=== PATIENT | female | born 2000 | race Caucasian/White ===

== ENCOUNTER 2023-04-10 07:36 | Outpatient (REF) | payer OTHER, SELFPAY | END 2023-04-10 07:37 | disposition home or self-care (01) | LOC: HO.WFDLDS 07:36 | PROVIDERS: Visit Provider Nurse Practitioner Family | DX: Z00.00 Encounter for general adult medical examination without abnormal findings (principal); R82.90 Unspecified abnormal findings in urine | CPT/HCPCS: 36415; 80053; 80061; 81001; 82306; 84443; 85025; 87086 ==

== ENCOUNTER 2023-04-18 08:39 | Outpatient (REF) | payer OTHER, SELFPAY ==
[2023-04-18 11:39] LABS: Appearance Urine Clear; Color Urine Yellow; Glucose Urine UA Negative (Negative); Leukocyte Esterase Urine Negative (Negative); Nitrite Urine Negative (Negative); PH 5.5 (5.0-9.0); Specific Gravity - Urine 1.015 (1.005-1.025); Urine Blood Negative (Negative); Urine Ketones Negative (Negative); Urine Protein Negative (Neg-Trace)
[2023-04-18 13:02] LABS: Syphilis Screen Nonreactive (Nonreactive)
[2023-04-21 05:19] LABS: HBc Num1 0.13 S/CO (0.00-0.79); HBsAGNum1 0.27 S/CO (0.00-0.99); HIV AB/AG Nonreactive (Nonreactive); HIV Num 1 0.06 S/CO (0.00-0.99); Hepatitis B Core Antibody Nonreactive (Nonreactive); Hepatitis B Surface Antigen Negative (Negative); ~HepC Num1 0.11 S/CO (0.00-0.79); ~Hepatitis C Antibody Nonreactive (Nonreactive)
[2023-04-21 05:50] LABS: HBS Num1 12.01 mIU/mL (0-7.99); ~Hepatitis B Surface Antibody REACTIVE (Nonreactive)
== END 2023-04-18 08:40 | disposition home or self-care (01) ==
LOC: HO.WFDLDS 08:39
PROVIDERS: Visit Provider Nurse Practitioner Family
DX: Z00.00 Encounter for general adult medical examination without abnormal findings (principal); Z11.4 Encounter for screening for human immunodeficiency virus [HIV]; Z11.3 Encounter for screening for infections with a predominantly sexual mode of transmission
CPT/HCPCS: 36415; 81003; 86704; 86706; 86780; 86803; 87340; 87389

== ENCOUNTER 2023-05-07 08:57 | Outpatient (AMB) | payer OTHER, SELFPAY ==
[2023-05-07 08:59] VITALS: BP 116/76; PULSE 85; O2SAT 98; BMI 34.5
--- NOTE | 2023-05-07 08:59 | MHC.PC.OV ---
Vital Signs 05/07/23 08:59 Height 5 ft 6 in Weight 214 lb BMI 34.5 BP 116/76 Blood Pressure Location Lt brachial Position Sitting Pulse 85 Pulse Source Pulse Oximeter Pulse Oximetry (%) 98 Intake Visit Reasons: 1 mos labs review, anxiety, depression Intake Note: pt is here for 1 mon f/u labs, anxiety/depression Manager Of Financial Required: No Accompanied by: Self / Same As Patient Allergies No Known Allergies Allergy (Verified 05/07/23 09:24) Medication List - Last Reconciled 05/07/23 by Pop Faria CNP No Known Home Meds Tobacco use date assessed: 04/09/23 Dental Screening Dental Screen Date: 05/07/23 Did you have a dental visit in the last 12 months?: Yes Did you have a dental problem in the last 6 months where you did not have access to dental care?: No Was dental information given to patient?: Patient has dentist HPI HPI Comments History of Present Illness Details 22 y/o female presents for anxiety, depression, and review of recent blood work follow-up. No acute symptoms. 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 1. Little interest or pleasure in doing things: several days 2. Feeling down, depressed, or hopeless: several days 3. Trouble falling or staying asleep, or sleeping too much: several days 4. Feeling tired or having little energy: several days 5. Poor appetite or overeating: not at all 6. Feeling bad about yourself - or that you are a failure or have let yourself or your family down: not at all 7. Trouble concentrating on things, such as reading the newspaper or watching television: not at all 8. Moving or speaking so slowly that other people could have noticed. Or the opposite - being so fidgety or restless that you have been moving around a lot more than usual: not at all 9. Thoughts that you would be better off or of hurting yourself in some way: not at all Total score: 4 Depression Screening Interpretation: Negative 70193 - PHQ-9 Billing: Yes Source: Developed by Drs. Clay Avilez, Jose Carlos Contreras and colleagues, with an educational kimberly from [employer] (Closed). Thrive Questionnaire Date Thrive assessed: 04/09/23 LAURA-7 AMB Questionnaire LAURA-7 Date LAURA - 7 assessed: 05/07/23 Feeling nervous, anxious, or on edge: 0 = Not at all Not being able to stop or control worryin = Not at all Worrying too much about different things: 1 = Several days Trouble relaxin = Not at all Being so restless that it is hard to sit still: 0 = Not at all Becoming easily annoyed or irritable: 1 = Several days Feeling afraid as if something awful might happen: 0 = Not at all Total LAURA-7 score (0-4 normal; 5-9 mild; 10-14 moderate; 15-21 severe): 2 Source: Developed by Drs. Clay Avilez, Jose Carlos Contreras and colleagues, with an educational kimberly from [employer] (Closed). LAURA-7 Assessment Billing LAURA-7 Assessment Tool: LAURA-7 Assessment 56718 Review of Systems Const Details: Const Denies chills, Denies fatigue, Denies fever(s), Denies headache(s) and Denies weakness ENT Denies dizziness and Denies headache(s) Card Denies chest pain, Denies lightheadedness, Denies dyspnea and Denies other (Palpitations) Resp Denies cough, Denies dyspnea, Denies wheezing and Denies other ( shortness of breath) GI Denies abdominal pain, Denies melena, Denies hematochezia, Denies change in bowel habits, Denies dyspepsia and Denies nausea Denies hematuria and Denies dysuria Musc Denies abnormal gait, Denies myalgias, Denies arthralgias, Denies numbness and Denies tingling Skin/Breast Denies rash, Denies unusual bruising and Denies wounds Neuro Denies abnormal gait, Denies dizziness, Denies headache(s), Denies memory loss, Denies numbness, Denies Sensory deficit (Neuro), Denies tingling and Denies weakness Psych Denies anxiety and Denies depression Endo Denies fatigue Aller/Immun Denies wheezing Physical exam (Primary Care) Vital Signs: Last Vital Signs Pulse 85 05/07/23 08:59 BP 116/76 05/07/23 08:59 Pulse Ox 98 05/07/23 08:59 BMI result Body Mass Index 34.5 Tobacco/Smoking Status: Tobacco use Status Tobacco use date assessed 04/09/23 05/07/23 09:07 Patient Tobacco Use Status Never used Tobacco 05/07/23 09:07 e-Cigarette/Vaping Use Currently Using 05/07/23 09:07 PHQ-9: PHQ-9 Score PHQ-9: Total score 4 05/07/23 09:07 Depression Screening Interpretation: Negative Thrive Assessment: Date of Thrive Assessment Date Thrive assessed 04/09/23 05/07/23 09:07 Const Other: General: no acute distress and well developed Nutritional Appearance: well nourished Orientation/consciousness: patient oriented x3 HENMT Head: Yes normocephalic and Yes atraumatic Eyes General: appearance normal, both eyes and all related structures Pupils: Equal, round and reactive pupils present EOM: EOMs intact bilaterally Resp Effort & Inspection: normal respiratory effort Auscultation: clear to auscultation bilaterally Cardio Rate: regular rate Rhythm: regular rhythm Heart sounds: S1 normal heart sound present, S2 normal heart sound present, no gallops, no murmurs and no rubs GI Palpation (GI): No Abdominal aortic bruit present, Soft to palpation, nontender, No hepatosplenomegaly present and No Rebound tenderness present Auscultation: normal bowel sounds General: Yes no CVA tenderness Back/Spine/Pelvis Back: no CVA tenderness Cervical Spine: cervical ROM normal and No Cervical spine tenderness Thoracic/Lumbar Spine: thoraco-lumbar ROM normal, No pain with thoraco-lumbar ROM, No thoracic spinal tenderness and No lumbar spinal tenderness Extrem General: Yes normal to inspection, No edema and No calf tenderness Skin General: warm and dry. Normal skin color. Normal skin turgor Lesions: no lesions Rashes: no rashes Trauma: no lacerations or abrasions Wounds: no wounds Nails: normal Neuro General: patient oriented x3, gait normal and no focal neuro deficit Cranial nerves: Yes Equal, round and reactive pupils present Cognition (Neuro): normal cognition Gait exam (Neuro): Normal gait present Sensory Exam: No Sensory deficit (Neuro) Psych Appearance: grossly normal Affect: normal affect Attitude: cooperative Thought process: Normal thought process present Assessment and Plan Assessment & Plan (1) Anxiety: Code(s): F41.9 - Anxiety disorder, unspecified Plan: No acute symptoms Routine exercise encouraged Follow-up with concerns or symptoms Verbalized understanding and agreed with the plan. (2) Depression: Code(s): F32.A - Depression, unspecified Plan: As above (3) Elevated LDL cholesterol level: Code(s): E78.00 - Pure hypercholesterolemia, unspecified Plan: Recent blood work reviewed with the patient LDL was elevated, 142 Advised to limit foods high in saturated fat and avoid foods high trans fat Routine exercise encouraged Will continue to monitor Coding Level of Care Code Est Pt Level 3 (53782) Diagnoses Anxiety F41.9 Depression F32.A Elevated LDL cholesterol level E78.00 Additional Codes LAURA-7 Assessment Billing - LAURA-7 Assessment Tool: LAURA-7 Assessment 14858 ([id number]) Time Spent (min) 25
== END 2023-05-07 09:27 | disposition home or self-care (01) ==
PROVIDERS: PCP Nurse Practitioner Family; Visit Provider Nurse Practitioner Family
DX: F41.9 Anxiety disorder, unspecified (principal); F32.A Depression, unspecified; E78.00 Pure hypercholesterolemia, unspecified
CPT/HCPCS: 99213

== ENCOUNTER 2023-05-07 09:53 | Outpatient (REF) | payer OTHER, SELFPAY ==
[2023-05-08 12:50] LABS: CT PCR NOT DETECTED (Not Detect.); NG PCR NOT DETECTED (Not Detect.)
== END 2023-05-07 09:54 | disposition home or self-care (01) ==
LOC: HO.WFDLDS 09:53
PROVIDERS: Visit Provider Nurse Practitioner Family
DX: Z20.2 Contact with and (suspected) exposure to infections with a predominantly sexual mode of transmission (principal)
CPT/HCPCS: 0353U

== ENCOUNTER 2024-08-23 07:57 | Outpatient (AMB) | payer OTHER, SELFPAY ==
--- NOTE | 2024-08-23 07:59 | A.OFFPC_ITS ---
Vital Signs 08/23/24 08:05 Height 5 ft 7 in Weight 221 lb 4 oz BMI 34.6 BP 112/70 Blood Pressure Location Rt brachial Position Sitting Respiration 16 Pulse 91 Pulse Source Pulse Oximeter Temp 97.9 F Temp Source Oral Pulse Oximetry (%) 97 Oxygen Delivery Method Room Air Intake Visit Reasons: annual Intake Note: patient here for CPE [employer] Required: No Is last menstrual period known: Yes Last menstrual period: 08/23/24 Post menopausal: No Patient : No Allergies No Known Allergies Allergy (Verified 08/23/24 08:11) Medication List - Last Reconciled 08/23/24 by Pop Faria CNP No Known Home Meds Tobacco use date assessed: 08/23/24 Dental Screening Dental Screen Date: 08/23/24 Did you have a dental visit in the last 12 months?: Yes Did you have a dental problem in the last 6 months where you did not have access to dental care?: No Was dental information given to patient?: Patient has dentist HPI HPI Comments History of Present Illness Details 24-year-old female presents for an exten ded physical exam. She reports PMH significant for anxiety and depression. She is not on prescription medications. She reports increased anxiety and depressive symptoms which she attributes to w ork stressors, family issues, and poor night sleep. She has trouble falling asleep. She has positive SI. She notes that Sometimes i feel like people would be better off if i was gone. She notes that her brothers and sisters in the [facility] has note spoken to her for 11 years. She notes that they probably would not noticed if she is not alive. She denies SI/HI and no plan of committing suicide. She denies history of psychotropic medication but notes that she had trials of psychotherapy at childhood. She did not find psychotherapy helpful. She generally makes healthy dietary choices. She exercises at times. She has trouble falling asleep. She is able to fall and stay asleep after taking zzzquil. 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 Drinks 1 beer weekly. No recreational drugs. Last eye exam was 05/04/2024 at [facility], in [place]. She will sign a release for her PCP to obtain her records Last pap smear test was over 3 years ago She does not recall getting a tetanus vaccine. She will review her record and inform her PCP She has not been vaccinated for the flu this season; requests vaccinated. She is sexually active, in a monogamous relationship, and has concerns for STDs. 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 1. Little interest or pleasure in doing things: nearly every day 2. Feeling down, depressed, or hopeless: nearly every day 3. Trouble falling or staying asleep, or sleeping too much: nearly every day 4. Feeling tired or having little energy: nearly every day 5. Poor appetite or overeating: nearly every day 6. Feeling bad about yourself - or that you are a failure or have let yourself or your family down: nearly every day 7. Trouble concentrating on things, such as reading the newspaper or watching television: nearly every day 8. Moving or speaking so slowly that other people could have noticed. Or the opposite - being so fidgety or restless that you have been moving around a lot more than usual: not at all 9. Thoughts that you would be better off or of hurting yourself in some way: more than half the days Total score: 23 Depression Screening Interpretation: Positive Depression Screening Follow-up: Existing condition and New Medication prescribed Depression Screening Done: Yes Source: Developed by Drs. Clay Avilez, Edilma Dunbar, Jose Carlos Diop and colleagues, with an educational kimberly from [employer]. Thrive Questionnaire Date Thrive assessed: 08/23/24 I am a: Patient What is your living situation today?: I have a steady place to live Within the past 12 months, did the food you bought not last and you didn't have the money to get more?: Sometimes True Within the past 12 months, did you worry whether your food would run out before you got money to buy more?: Sometimes True Do you have trouble paying for medicines?: No Do you have trouble getting transportation to medical appointments?: No Do you have trouble paying your heating and electricity bill?: No Do you have trouble taking care of your child, family member or friend?: No Do you have trouble with day-to-day activities such as bathing, preparing meals, shopping, managing finances, etc.?: No Are you currently unemployed and looking for a job?: No Are you interested in more education?: Yes Please select the resources that you would like help with: Education Currently or been in a relationship where the following occur: No concerns reported THRIVE Score: 2 AUDIT C Alcohol Use Questionnaire (AUDIT-C) 1. How often do you have a drink containing alcohol?: Monthly or less 2. How many drinks containing alcohol do you have on a typical day when you are drinking?: 1 or 2 3. How often do you have six or more drinks on one occasion?: Never Total Score: 1 Score Reviewed/Action Taken: Yes LAURA-7 AMB Questionnaire LAURA-7 Date LAURA - 7 assessed: 08/23/24 Feeling nervous, anxious, or on edge: 1 = Several days Not being able to stop or control worryin = Several days Worrying too much about different things: 3 = Nearly every day Trouble relaxin = Nearly every day Being so restless that it is hard to sit still: 3 = Nearly every day Becoming easily annoyed or irritable: 3 = Nearly every day Feeling afraid as if something awful might happen: 1 = Several days Total LAURA-7 score (0-4 normal; 5-9 mild; 10-14 moderate; 15-21 severe): 15 Source: Developed by Drs. Clay Avilez, Edilma Dunbar, Jose Carlos Diop and colleagues, with an educational kimberly from [employer] LAURA-7 Assessment Billing LAURA-7 Assessment Tool: LAURA-7 Assessment 63692 Review of Systems Const Details: Denies chills, Denies fatigue, Denies fever(s), Denies headache(s) and Denies weakness HEENT Denies change in vision, Denies dizziness, Denies headache(s), Denies hearing loss, Denies nasal congestion, Denies sinus pain, Denies sinus pressure and Denies sore throat Card Denies chest pain, Denies lightheadedness, Denies dyspnea and Denies other (palpitations) Resp Denies cough, Denies dyspnea and Denies wheezing GI Denies abdominal pain, Denies melena, Denies hematochezia, Denies change in bowel habits, Denies dyspepsia and Denies nausea Denies hematuria and Denies dysuria Musc Denies abnormal gait, Denies myalgias, Denies arthralgias, Denies numbness and Denies tingling Skin/Breast Denies rash, Denies unusual bruising and Denies wounds Neuro Denies abnormal gait, Denies dizziness, Denies headache(s), Denies memory loss, Denies numbness, Denies Sensory deficit (Neuro), Denies tingling and Denies weakness Psych Reports anxiety, Reports depression and Denies memory loss Endo Denies cold intolerance, Denies fatigue, Denies heat intolerance, Denies polyd ipsia and Denies polyuria Vivek/Lymph Denies easy bleeding and Denies easy bruising Aller/Immun Denies wheezing Physical exam (Primary Care) Vital Signs: Last Vital Signs Temp 97.9 F 08/23/24 08:05 Pulse 91 08/23/24 08:05 Resp 16 08/23/24 08:05 BP 112/70 08/23/24 08:05 Pulse Ox 97 08/23/24 08:05 Oxygen Delivery Method Room Air 08/23/24 08:05 BMI result Body Mass Index 34.6 Tobacco/Smoking Status: Tobacco use Status Tobacco use date assessed 08/23/24 08/23/24 08:05 Patient Tobacco Use Status Never used Tobacco 08/23/24 08:02 e-Cigarette/Vaping Use Former Use 08/23/24 08:49 PHQ-9: PHQ-9 Score PHQ-9: Total score 23 08/23/24 08:57 Depression Screening Interpretation: Positive Depression Screening Follow-up: Existing condition and New Medication prescribed Thrive Assessment: Date of Thrive Assessment Date Thrive assessed 08/23/24 08/23/24 08:02 Currently or been in a relationship where the following occur: No concerns reported Const Other: General: no acute distress, well developed, alert and awake Nutritional Appearance: well nourished Orientation/consciousness: patient oriented x3 [facility] Head: Yes normocephalic and Yes atraumatic Ears: hearing grossly normal bilaterally and TM's normal bilaterally General nose exam: Normal external nose present and Normal nares present Mouth: Normal oral and palatal mucosa present and moist mucous membranes Teeth and gingiva: dentition normal Throat: Yes oropharynx normal Eyes Pupils: Equal, round and reactive pupils present and Pupil accommodation reflex normal EOM: EOMs intact bilaterally Neck Neck: Yes normal visual inspection, Yes no lymphadenopathy and Yes trachea midline Thyroid: Thyroid normal Carotids: no bruits Lymphatic: no lymphadenopathy noted Chest Chest palpation & inspection: normal inspection of the chest Resp Effort & Inspection: normal respiratory effort Auscultation: clear to auscultation bilaterally Cardio Rate: regular rate Rhythm: regular rhythm Heart sounds: S1 normal heart sound present, S2 normal heart sound present, no gallops, no murmurs and no rubs Bruits: no abdominal aortic bruits and no carotid bruits GI Palpation (GI): No Abdominal aortic bruit present, Soft to palpation, nontender, No hepatosplenomegaly present and No Rebound tenderness present Auscultation: normal bowel sounds General: Yes no CVA tenderness Back/Spine/Pelvis Back: no CVA tenderness Cervical Spine: cervical ROM normal and No Cervical spine tenderness Thoracic/Lumbar Spine: thoraco-lumbar ROM normal, No pain with thoraco-lumbar ROM, No thoracic spinal tenderness and No lumbar spinal tenderness Skin General: warm and dry. Normal skin color. Normal skin turgor Lesions: no lesions Rashes: no rashes Trauma: no lacerations or abrasions Wounds: no wounds Nails: normal Neuro General: patient oriented x3, gait normal and CN's II-XI intact bilaterally Cranial nerves: Yes Equal, round and reactive pupils present Cognition (Neuro): normal cognition Gait exam (Neuro): Normal gait present Motor exam (neuro): 5/5 motor strength present throughout Sensory Exam: No Sensory deficit (Neuro) Deep tendon reflexes (DTR's): Right patellar reflex intensity grade: 2+ and Left patellar reflex intensity grade: 2+ Extrem General: Yes normal to inspection, No edema and No calf tenderness Psych Appearance: grossly normal Affect: normal affect Attitude: cooperative Thought process: Normal thought process present Office Procedures Flu Questionnaire Does the patient have a severe egg allergy?: No Does the patient have severe life threatening allergies?: No Does the patient have a fever or illness today?: No Has the patient ever had Guillain-[place] Syndrome?: No Has the patient ever had any past reaction to a flu shot?: No Immunizations Fluarix Triv 6840-8636 (PF) 45 mcg (15 mcg x 3)/0.5 mL IM syringe Performing Provider: Pop Faria CNP Performing Location: [facility] Family Medicine Administered by: Abigail Francisco RN on 08/23/24 08:51 Dose Route Admin Location Dispensed Lot Number Expiration Date [facility] Front Desk Receptionist 0.5 mL IM Right Deltoid 0.5 mL [id number] 04/04/25 [id number] [employer] VIS Given Date VIS Provided VIS Publication Date 08/23/24 Single Vaccine 21 Eligibility Eligibility Date Funding Source Not [facility] Eligible 08/23/24 Private Coding Level of Care Code Est Pt Level 4 (48594) Est Pt Prev Care 18-39y(04870) Diagnoses Normal physical examination, routine Z00.00 Anxiety F41.9 Depression F32.A Sleep disturbance G47.9 Screen for STD (sexually transmitted disease) Z11.3 Flu vaccine need Z23 Obesity (BMI 30-39.9) E66.9 Pap smear for cervical cancer screening Z12.4 Laboratory tests ordered as part of a complete physical exam (CPE) Z00.00 Additional Codes LAUAR-7 Assessment Billing - LAURA-7 Assessment Tool: LAURA-7 Assessment 94702 ([id number]) Assessment & Plan Assessment & Plan (1) Normal physical examination, routine: Code(s): Z00.00 - Encounter for general adult medical examination without abnormal findings Category: Medical Plan: No significant functional limitation noted Healthy diet and routine exercise encouraged Advised to get lab work done before her next visit Follow-up in 2 weeks for anxiety, depression, and labs review or sooner with worsening or new symptoms Verbalized understanding and agreed with the treatment plan (2) Anxiety: Code(s): F41.9 - Anxiety disorder, unspecified Category: Medical Plan: Reports increased anxiety and depressive symptoms which she attributes to poor sleep, and work and family stressors. She has passive SI. No active SI. No HI. No plan of committing suicide PHQ-9 and LAURA-7 scores revealed severe depression and anxiety She declines psychotherapy but is willing to start pharmacotherapy. Will start sertraline 25 mg daily. Advised to take as prescribed. Instructed on the risks, benefits, and potential adverse reactions of the medication Routine exercise encouraged Follow-up in 2 weeks or sooner with worsening or new symptoms Verbalized understanding and agreed with the treatment plan (3) Depression: Code(s): F32.A - Depression, unspecified Category: Medical Plan: Plan as above (4) Sleep disturbance: Code(s): G47.9 - Sleep disorder, unspecified Category: Medical Plan: Plan as above (5) Screen for STD (sexually transmitted disease): Code(s): Z11.3 - Encounter for screening for infections with a predominantly sexual mode of transmission Category: Medical Plan: She is sexually active, in a monogamous relationship, and has concerns for STDs STD labs ordered (6) Flu vaccine need: Code(s): Z23 - Encounter for immunization Category: Medical Plan: He has not been vaccinated for the flu this season Flu vaccine administer today by our nurse (7) Obesity (BMI 30-39.9): Code(s): E66.9 - Obesity, unspecified Category: Medical Plan: She currently weighs 221 lb, BMI is 34.6 Healthy diet and routine exercise encouraged Referred to [facility] weight management as requested (8) Pap smear for cervical cancer screening: Code(s): Z12.4 - Encounter for screening for malignant neoplasm of cervix Category: Medical Plan: Her last Pap smear test was over 3 years ago 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 Advised to fast for at least 10 hours before getting labs drawn. May drink water Verbalized understanding and agreed with treatment plan. Orders: Orders TSH reflex Free T4 Today Z00.00 - Encounter for general adult medical examination without abnormal findings UA CC w/rflx Micro + Cult Today Z00.00 - Encounter for general adult medical examination without abnormal findings CT NG by PCR Today Z11.3 - Encounter for screening for infections with a predominantly sexual mode of transmission HIV Ab/Ag Today Z11.3 - Encounter for screening for infections with a predominantly sexual mode of transmission Syphilis Screen Today Z11.3 - Encounter for screening for infections with a predominantly sexual mode of transmission Complete Blood Count Auto Diff Today Z00.00 - Encounter for general adult medical examination without abnormal findings Comprehensive Stryker. Panel Fast Today Z00.00 - Encounter for general adult medical examination without abnormal findings Lipid Panel Today Z00.00 - Encounter for general adult medical examination without abnormal findings Vitamin D 25-OH Total Today Z00.00 - Encounter for general adult medical examination without abnormal findings Influenza [id number] Immunization Today Z23 - Encounter for immunization Hepatitis B,C Profile Today Z11.3 - Encounter for screening for infections with a predominantly sexual mode of transmission Referrals Medical Weight Management Referral E66.9 - Obesity, unspecified MANAGER INTERVENTIONAL Referral Z12.4 - Encounter for screening for malignant neoplasm of cervix Medications: New sertraline 25 mg PO DAILY 30 tabs 3RF 30 days
[2024-08-23 08:05] VITALS: BP 112/70; PULSE 91; RESP 16; TEMP 36.6; O2SAT 97; BMI 34.6
== END 2024-08-23 08:51 | disposition home or self-care (01) ==
PROVIDERS: PCP Nurse Practitioner Family; Visit Provider Nurse Practitioner Family
DX: Z00.00 Encounter for general adult medical examination without abnormal findings (principal); F41.9 Anxiety disorder, unspecified; F32.A Depression, unspecified; G47.9 Sleep disorder, unspecified; Z11.3 Encounter for screening for infections with a predominantly sexual mode of transmission; E66.9 Obesity, unspecified

== ENCOUNTER → 2024-08-23 07:57 | Outpatient (BNVA) | payer OTHER, SELFPAY | PROVIDERS: PCP Nurse Practitioner Family; Visit Provider Nurse Practitioner Family | DX: Z00.00 Encounter for general adult medical examination without abnormal findings (principal); Z23 Encounter for immunization; F41.9 Anxiety disorder, unspecified; F32.A Depression, unspecified; G47.9 Sleep disorder, unspecified; E66.9 Obesity, unspecified; Z68.34 Body mass index [BMI] 34.0-34.9, adult | CPT/HCPCS: 90471; 90656; 96127 ==

== ENCOUNTER 2024-08-23 09:29 | Outpatient (REF) | payer OTHER, SELFPAY ==
[2024-08-23 11:32] LABS: MANUAL DIFF FLAG NO
[2024-08-23 11:46] LABS: Appearance Urine Clear; Color Urine Yellow; Glucose Urine UA Negative (Negative); Leukocyte Esterase Urine Negative (Negative); Nitrite Urine Negative (Negative); PH 5.5 (5.0-9.0); UMIC TRIGGER UACC YES; Urine Blood Small (1+) (Negative); Urine Ketones Negative (Negative); Urine Protein Negative (Neg-Trace)
[2024-08-23 11:55] LABS: Bacteria Urine None Seen (None Seen); Hyaline Casts Urine 0-2 /LPF (0-2); Squamous Epithelial Cell Urine 0-2 /HPF (0-2); WBC Urine 0-5 /HPF (0-5)
[2024-08-23 12:04] LABS: Basophils Absolute Auto 0.1 X10*3/uL (0.0-0.2); Basophils Percent Auto 0.8 % (0-2); Eosinophils Absolute Auto 0.1 X10*3/uL (0.0-0.4); Hematocrit 42.9 % (37.0-47.0); Hemoglobin 14.2 g/dl (12.0-16.0); Imm Gran Abs Auto 0.01 X10*3/uL (0.00-0.03); Imm Gran Pct Auto 0.2 % (0.0-0.4); Lymphocytes Absolute Auto 2.1 X10*3/uL (1.2-4.9); Lymphocytes Percent Auto 31.6 % (20-40); Mean Corpuscular HGB Conc 33.1 g/dl (31.0-35.0); Mean Corpuscular Hemoglobin 28.5 pg (27.0-33.0); Mean Platelet Volume 10.3 fL (9.4-12.3); Monocytes Absolute Auto 0.5 X10*3/uL (0.1-1.2); Monocytes Percent Auto 7.6 % (2-11); Neutrophils Absolute Auto 3.8 x10*3/uL (2.0-8.3); Neutrophils Percent Auto 57.8 % (45-73); Platelet Count 323 X10*3/uL (160-400); Red Blood Count 4.99 X10*6/uL (4.20-5.50); Red Cell Distribution Width 12.9 % (11.0-16.0); White Blood Count 6.5 X10*3/uL (4.8-10.8)
[2024-08-23 12:15] LABS: Alanine Aminotransferase 17 U/L (0-31); Albumin Level 4.1 g/dL (3.5-5.0); Alkaline Phosphatase 72 U/L (39-117); Anion Gap 9 (12-20); Aspartate Amino Transferase 21 U/L (5-31); Bilirubin Total 0.4 mg/dL (0.0-1.0); Blood Urea Nitrogen 7 mg/dL (9-16); Calcium 9.4 mg/dL (8.4-10.2); Carbon Dioxide 25 mmol/L (22-29); Chloride 108 mmol/L (96-108); Cholesterol 177 mg/dL (<200); Estimated Glomerular Filt Rate > 60; Glucose Fasting 95 mg/dL (60-99); HDL Cholesterol 40 mg/dL (>40); LDL Cholesterol Calculated 122 mg/dL (<100); Potassium 3.7 mmol/L (3.3-5.1); Sodium 138 mmol/L (135-145); Total Protein 7.7 g/dL (6.5-8.0); Triglycerides 78 mg/dL (<150)
[2024-08-23 12:26] LABS: Syphilis Screen Nonreactive (Nonreactive)
[2024-08-23 12:30] LABS: HBS Num1 11.87 mIU/mL (0-7.99); HBc Num1 0.27 S/CO (0.00-0.79); HBsAGNum1 0.42 S/CO (0.00-0.99); HIV AB/AG Nonreactive (Nonreactive); HIV Num 1 0.05 S/CO (0.00-0.99); Hepatitis B Core Antibody Nonreactive (Nonreactive); Hepatitis B Surface Antigen Negative (Negative); ~HepC Num1 0.19 S/CO (0.00-0.79); ~Hepatitis C Antibody Nonreactive (Nonreactive)
[2024-08-23 12:38] LABS: TSH reflex Free T4 0.62 uIU/mL (0.32-4.0); Vitamin D 25-OH Total 26.1 ng/mL (>30)
[2024-08-23 13:34] LABS: CT PCR NOT DETECTED (Not Detect.); NG PCR NOT DETECTED (Not Detect.)
[2024-08-23 14:05] LABS: HBS Num2 10.38 mIU/mL (0-7.99); ~Hepatitis B Surface Antibody GRAYZONE (Nonreactive)
== END 2024-08-23 09:30 | disposition home or self-care (01) ==
LOC: HO.WFDLDS 09:29
PROVIDERS: Visit Provider Nurse Practitioner Family
DX: Z00.00 Encounter for general adult medical examination without abnormal findings (principal); Z11.3 Encounter for screening for infections with a predominantly sexual mode of transmission
CPT/HCPCS: 36415; 80053; 80061; 81001; 82306; 84443; 85025; 86704; 86706; 86780; 86803; 87340; 87389; 87491; 87591

== ENCOUNTER 2024-09-06 10:58 | Outpatient (AMB) | payer OTHER, SELFPAY ==
--- NOTE | 2024-09-06 11:04 | A.OFFPC_ITS ---
Vital Signs 09/06/24 11:10 Height 5 ft 7 in Weight 218 lb 6 oz BMI 34.2 BP 119/66 Blood Pressure Location Lt brachial Position Sitting Respiration 16 Pulse 81 Pulse Source Pulse Oximeter Temp 97.2 F Temp Source Temporal Artery Scan Pulse Oximetry (%) 98 Oxygen Delivery Method Room Air Intake Visit Reasons: Anx and Depression Intake Note: patient here for follow up on anxiety and depression Bicycle Inspector Required: No Is last menstrual period known: Yes Last menstrual period: 08/23/24 Post menopausal: No Patient : No Allergies No Known Allergies Allergy (Verified 09/06/24 11:25) Medication List - Last Reconciled 09/06/24 by Pop Faria CNP sertraline 25 mg PO DAILY 30 days Tobacco use date assessed: 09/06/24 Dental Screening Dental Screen Date: 09/06/24 Did you have a dental visit in the last 12 months?: Yes Did you have a dental problem in the last 6 months where you did not have access to dental care?: No Was dental information given to patient?: Patient has dentist HPI HPI Comments History of Present Illness Details The patient is a 24-year-old female presenting with follow-up for anxiety and depression. She has been experiencing symptoms of anxiety and depression that were treated with sertraline, recently initiated at a dose of 25 mg daily. The patient reports no significant improvement in her symptoms, stating that she remains depressed. Others have observed her appearing more depressed, particularly at work, where she notes feeling distracted. Recent depression screening reveals a PHQ-9 score of 16, indicating moderately severe depression, and an anxiety screening showing mild anxiety. The patient expresses ongoing issues with sleep, only achieving approximately four hours of sleep per night, contributing to persistent fatigue. There have been no significant stevenson ges in her level of nervousness since starting the medication. Additionally, the patient reports an absence of motivation and energy, particularly around exercise. She requests tetanus injection and recent STD labs results. [facility] Medical History Anxiety Depression High cholesterol No pertinent family history Surgical History No pertinent past surgical history Social History Housing: Apartment Patient Tobacco Use Status: Never used Tobacco e-Cigarette/Vaping Use: Former Use Second Hand Smoke Exposure: No service: No Current occupational status: employed Current occupation: [employer] Cognitive needs: No Hearing needs: No Vision needs: Yes Female Reproductive History Menstrual Date of last menstrual period: 08/23/24 Questionnaire PHQ-9 Over the last 2 weeks, how often have you been bothered by any of the following problems? 1. Little interest or pleasure in doing things: nearly every day 2. Feeling down, depressed, or hopeless: nearly every day 3. Trouble falling or staying asleep, or sleeping too much: nearly every day 4. Feeling tired or having little energy: nearly every day 5. Poor appetite or overeating: more than half the days 6. Feeling bad about yourself - or that you are a failure or have let yourself or your family down: more than half the days 7. Trouble concentrating on things, such as reading the newspaper or watching te levision: not at all 8. Moving or speaking so slowly that other people could have noticed. Or the opposite - being so fidgety or restless that you have been moving around a lot more than usual: not at all 9. Thoughts that you would be better off or of hurting yourself in some way: not at all Total score: 16 Depression Screening Interpretation: Positive Depression Screening Follow-up: Existing condition and In treatment Depression Screening Done: Yes 66011 - PHQ-9 Billing: Yes Source: Developed by Drs. Clay Avilez, Edilma Dunbar, Jose Carlos Diop and colleagues, with an educational kimberly from [employer]. Thrive Questionnaire Date Thrive assessed: 09/06/24 I am a: Patient What is your living situation today?: I have a steady place to live Within the past 12 months, did the food you bought not last and you didn't have the money to get more?: Sometimes True Within the past 12 months, did you worry whether your food would run out before you got money to buy more?: Sometimes True Do you have trouble paying for medicines?: No Do you have trouble getting transportation to medical appointments?: No Do you have trouble paying your heating and electricity bill?: No Do you have trouble taking care of your child, family member or friend?: No Do you have trouble with day-to-day activities such as bathing, preparing meals, shopping, managing finances, etc.?: No Are you currently unemployed and looking for a job?: No Are you interested in more education?: Yes Currently or been in a relationship where the following occur: No concerns reported THRIVE Score: 2 AUDIT C Alcohol Use Questionnaire (AUDIT-C) 1. How often do you have a drink containing alcohol?: 2-4 times a month 2. How many drinks containing alcohol do you have on a typical day when you are drinking?: 1 or 2 3. How often do you have six or more drinks on one occasion?: Never Total Score: 2 Score Reviewed/Action Taken: Yes LAURA-7 AMB Questionnaire LAURA-7 Date LAURA - 7 assessed: 09/06/24 Feeling nervous, anxious, or on edge: 0 = Not at all Not being able to stop or control worryin = Not at all Worrying too much about different things: 0 = Not at all Trouble relaxin = Nearly every day Being so restless that it is hard to sit still: 1 = Several days Becoming easily annoyed or irritable: 2 = More than half the days Feeling afraid as if something awful might happen: 0 = Not at all Total LAURA-7 score (0-4 normal; 5-9 mild; 10-14 moderate; 15-21 severe): 6 Source: Developed by Drs. Clay Avilez, Edilma Dunbar, Jose Carlos Diop and colleagues, with an educational kimberly from [employer]. LAURA-7 Assessment Billing LAURA-7 Assessment Tool: LAURA-7 Assessment 70725 Review of Systems Const Details: Const Denies chills, Denies fatigue, Denies fever(s), Denies headache(s) and Denies weakness ENT Denies dizziness and Denies headache(s) Card Denies chest pain, Denies lightheadedness, Denies dyspnea and Denies other (Palpitations) Resp Denies cough, Denies dyspnea, Denies wheezing and Denies other ( shortness of breath) GI Denies abdominal pain, Denies melena, Denies hematochezia, Denies change in bowel habits, Denies dyspepsia and Denies nausea Denies hematuria and Denies dysuria Musc Denies abnormal gait, Denies myalgias, Denies arthralgias, Denies numbness and Denies tingling Skin/Breast Denies rash, Denies unusual bruising and Denies wounds Neuro Denies abnormal gait, Denies dizziness, Denies headache(s), Denies memory loss, Denies numbness, Denies Sensory deficit (Neuro), Denies tingling and Denies weakness Psych Denies anxiety, Reports depression, Denies memory loss Endo Denies cold intolerance, Denies fatigue, Denies heat intolerance, Denies polydipsia and Denies polyuria Aller/Immun Denies wheezing Physical exam (Primary Care) Vital Signs: Last Vital Signs Temp 97.2 F 09/06/24 11:10 Pulse 81 09/06/24 11:10 Resp 16 09/06/24 11:10 BP 119/66 09/06/24 11:10 Pulse Ox 98 09/06/24 11:10 Oxygen Delivery Method Room Air 09/06/24 11:10 BMI result Body Mass Index 34.2 Tobacco/Smoking Status: Tobacco use Status Tobacco use date assessed 09/06/24 09/06/24 11:12 Patient Tobacco Use Status Never used Tobacco 09/06/24 11:06 e-Cigarette/Vaping Use Former Use 09/06/24 11:06 PHQ-9: PHQ-9 Score PHQ-9: Total score 16 09/06/24 11:43 Depression Screening Interpretation: Positive Depression Screening Follow-up: Existing condition and In treatment Thrive Assessment: Date of Thrive Assessment Date Thrive assessed 09/06/24 09/06/24 11:06 Currently or been in a relationship where the following occur: No concerns reported Const Other: General: no acute distress and well developed Nutritional Appearance: well nourished Orientation/consciousness: patient oriented x3 HENMT Head: Yes normocephalic and Yes atraumatic Eyes General: appearance normal, both eyes and all related structures Pupils: Equal, round and reactive pupils present EOM: EOMs intact bilaterally Resp Effort & Inspection: normal respiratory effort Auscultation: clear to auscultation bilaterally Cardio Rate: regular rate Rhythm: regular rhythm Heart sounds: S1 normal heart sound present, S2 normal heart sound present, no gallops, no murmurs and no rubs GI Palpation (GI): No Abdominal aortic bruit present, Soft to palpation, nontender, No hepatosplenomegaly present and No Rebound tenderness present Auscultation: normal bowel sounds General: Yes no CVA tenderness Back/Spine/Pelvis Back: no CVA tenderness Cervical Spine: cervical ROM normal and No Cervical spine tenderness Thoracic/Lumbar Spine: thoraco-lumbar ROM normal, No pain with thoraco-lumbar ROM, No thoracic spinal tenderness and No lumbar spinal tenderness Extrem General: Yes normal to inspection, No edema and No calf tenderness Skin General: warm and dry. Normal skin color. Normal skin turgor Lesions: no lesions Rashes: no rashes Trauma: no lacerations or abrasions Wounds: no wounds Nails: normal Neuro General: patient oriented x3, gait normal and no focal neuro deficit Cranial nerves: Yes Equal, round and reactive pupils present Cognition (Neuro): normal cognition Gait exam (Neuro): Normal gait present Sensory Exam: No Sensory deficit (Neuro) Psych Appearance: grossly normal Affect: normal affect Attitude: cooperative Thought process: Normal thought process present Immunizations Boostrix Tdap 2.5 Lf unit-8 mcg-5 Lf/0.5 mL intramuscular syringe Performing Provider: Pop Faria CNP [facility] [facility] [facility] Administered by: Alma Peña RN on 09/06/24 11:43 Dose Route Admin Location Dispensed Lot Number Expiration Date [facility] Carton Forming Machine Adjuster 0.5 mL IM Right Deltoid 0.5 mL [id number] 10/27/26 [id number] [place] VIS Given Date VIS Provided VIS Publication Date 09/06/24 Single Vaccine 21 Eligibility Eligibility Date Funding Source Not [facility] Eligible 09/06/24 Private Coding Level of Care Code Est Pt Level 4 (89040) Diagnoses Anxiety F41.9 Depression F32.A Sleep disturbance G47.9 Vaccine for tetanus toxoid Z23 Additional Codes LAURA-7 Assessment Billing - LAURA-7 Assessment Tool: LAURA-7 Assessment 06694 ([id number]) PHQ-9 - 23527 - PHQ-9 Billing: Yes ([id number]) Assessment & Plan Assessment & Plan (1) Anxiety: Code(s): F41.9 - Anxiety disorder, unspecified Category: Medical Plan: Sertraline dose to be increased from 25 mg to 50 mg daily to address inadequate symptom management. Monitor symptoms following sertraline dosage adjustment. Follow-up scheduled in two weeks to assess response to dosage change. (2) Depression: Code(s): F32.A - Depression, unspecified Category: Medical Plan: Plan as above. (3) Sleep disturbance: Code(s): G47.9 - Sleep disorder, unspecified Category: Medical Plan: Encouragement to improve sleep hygiene; increase in sertraline dosage may also contribute to improved sleep. (4) Vaccine for tetanus toxoid: Code(s): Z23 - Encounter for immunization Category: Medical Plan: Tdap vaccine administered at the of this visit. Plan During the visit, we discussed the patient's current status of depression and anxiety. The PHQ-9 score continues to reflect moderately severe depression, while anxiety remains mild. We agreed to increase the sertraline dose to 50 mg daily and monitor its effects on both depression and anxiety symptoms. The importance of patience with medication adjustments was emphasized, as was the encouragement to engage in physical activity as energy permits. We discussed the continuation of regular follow-ups to monitor progress and the patient's under standing of factors impacting sleep. Consent was provided for a tetanus injection. Orders: Orders TDaP Immunization Today Z23 - Encounter for immunization Medications: New sertraline 50 mg PO DAILY 30 tabs 3RF 30 days Discontinued sertraline Discontinued Reason: Doctor's Order 25 mg PO DAILY 30 days 30 tabs 3RF Patient Instructions: - Increase sertraline to 50 mg daily. - Monitor mood and energy levels post-dosage adjustment. - Engage in physical activity when energy permits. - Return for a follow-up appointment in two weeks. - Obtain tetanus injection as planned today. - Contact the office if there are any urgent concerns or worsening symptoms. - Address any concerns about test results with front office staff. Patient was informed and verbally consented to the use of an ambient scribe for clinic note documentation during this visit.
[2024-09-06 11:10] VITALS: BP 119/66; PULSE 81; RESP 16; TEMP 36.2; O2SAT 98; BMI 34.2
== END 2024-09-06 11:51 | disposition home or self-care (01) ==
PROVIDERS: PCP Nurse Practitioner Family; Visit Provider Nurse Practitioner Family
DX: F41.9 Anxiety disorder, unspecified (principal); F32.A Depression, unspecified; G47.9 Sleep disorder, unspecified; Z23 Encounter for immunization

== ENCOUNTER → 2024-09-06 10:58 | Outpatient (BNVA) | payer OTHER, SELFPAY | PROVIDERS: PCP Nurse Practitioner Family; Visit Provider Nurse Practitioner Family | DX: F41.9 Anxiety disorder, unspecified (principal); F32.A Depression, unspecified; G47.9 Sleep disorder, unspecified; Z23 Encounter for immunization; Z79.899 Other long term (current) drug therapy | CPT/HCPCS: 90471; 90715; 96127 ==

== ENCOUNTER 2024-09-20 12:51 | Outpatient (AMB) | payer OTHER, SELFPAY ==
--- NOTE | 2024-09-20 12:55 | MHC.PC.OV ---
Vital Signs 09/20/24 13:29 Height 5 ft 7 in Weight 222 lb BMI 34.8 BP 121/72 Blood Pressure Location Rt brachial Position Sitting Respiration 16 Pulse 93 Pulse Source Pulse Oximeter Temp 97.2 F Temp Source Temporal Artery Scan Pulse Oximetry (%) 97 Oxygen Delivery Method Room Air Intake Visit Reasons: 2 wks anxiety, depression Intake Note: patient here for follow up on anxiety and depression Balance Wheel Facer Required: No Is last menstrual period known: Yes Last menstrual period: 08/23/24 Post menopausal: No Patient : Yes Allergies No Known Allergies Allergy (Verified 09/20/24 13:37) Tobacco use date assessed: 09/20/24 Dental Screening Dental Screen Date: 09/20/24 Did you have a dental visit in the last 12 months?: No Did you have a dental problem in the last 6 months where you did not have access to dental care?: No Was dental information given to patient?: Patient has dentist HPI HPI Comments History of Present Illness Details 24-year-old female presents for anxiety, depression, and review of recent lab results follow-up. She is taking sertraline which was increased from 25 mg to 50 mg at her last visit about 2 weeks ago. She stopped taking the medication due to lightheadedness, stomach ache, and nausea for a week after the dose increased. She stopped taking the medication 3 days ago and her symptoms completely resolved. She did not experience adverse reaction on the lower dose. She notes that she is exhausted, tired, and has no energy to do anything. She sleeps throughout the day. Her parents and friends think her anxiety and depressive symptoms are worse. He has been isolating from friends and family and communicating with them less. She denies SI/HI. She has not been motivated to exercise. She was told by [facility] that only surgery is offered and she has not eligible. She declines dietitian/pharmacy retail support specialist referral. [facility] Medical History Anxiety Depression High cholesterol No pertinent family history Surgical History No pertinent past surgical history Social History Housing: Apartment Patient Tobacco Use Status: Never used Tobacco e-Cigarette/Vaping Use: Former Use Second Hand Smoke Exposure: No service: No Current occupational status: employed Current occupation: [employer] Cognitive needs: No Hearing needs: No Vision needs: Yes Female Reproductive History Menstrual Date of last menstrual period: 08/23/24 Questionnaire PHQ-9 Over the last 2 weeks, how often have you been bothered by any of the following problems? 1. Little interest or pleasure in doing things: nearly every day 2. Feeling down, depressed, or hopeless: nearly every day 3. Trouble falling or staying asleep, or sleeping too much: nearly every day 4. Feeling tired or having little energy: nearly every day 5. Poor appetite or overeating: nearly every day 6. Feeling bad about yourself - or that you are a failure or have let yourself or your family down: not at all 7. Trouble concentrating on things, such as reading the newspaper or watching television: nearly every day 8. Moving or speaking so slowly that other people could have noticed. Or the opposite - being so fidgety or restless that you have been moving around a lot more than usual: not at all 9. Thoughts that you would be better off or of hurting yourself in some way: not at all Total score: 18 Depression Screening Interpretation: Positive Depression Screening Done: Yes 33378 - PHQ-9 Billing: Yes Source: Developed by Drs. Clay Avilez, Edilma Dunbar, Jose Carlos Diop and colleagues, with an educational kimberly from [employer]. Thrive Questionnaire Date Thrive assessed: 09/20/24 I am a: Patient What is your living situation today?: I have a steady place to live Within the past 12 months, did the food you bought not last and you didn't have the money to get more?: Sometimes True Within the past 12 months, did you worry whether your food would run out before you got money to buy more?: Sometimes True Do you have trouble paying for medicines?: No Do you have trouble getting transportation to medical appointments?: No Do you have trouble paying your heating and electricity bill?: No Do you have trouble taking care of your child, family member or friend?: No Do you have trouble with day-to-day activities such as bathing, preparing meals, shopping, managing finances, etc.?: No Are you currently unemployed and looking for a job?: No Are you interested in more education?: Yes Currently or been in a relationship where the following occur: No concerns reported THRIVE Score: 2 AUDIT C Alcohol Use Questionnaire (AUDIT-C) 1. How often do you have a drink containing alcohol?: Never Total Score: 0 LAURA-7 AMB Questionnaire LAURA-7 Date LAURA - 7 assessed: 09/20/24 Feeling nervous, anxious, or on edge: 2 = More than half the days Not being able to stop or control worryin = Not at all Worrying too much about different things: 3 = Nearly every day Trouble relaxin = Nearly every day Being so restless that it is hard to sit still: 3 = Nearly every day Becoming easily annoyed or irritable: 3 = Nearly every day Feeling afraid as if something awful might happen: 0 = Not at all Total LAURA-7 score (0-4 normal; 5-9 mild; 10-14 moderate; 15-21 severe): 14 Source: Developed by Drs. Clay Avilez, Edilma Dunbar, Jose Carlos Diop and colleagues, with an educational kimberly from [employer]. LAURA-7 Assessment Billing LAURA-7 Assessment Tool: LAURA-7 Assessment 66319 Review of Systems Const Details: Const Denies chills, Reports fatigue, Denies fever(s), Denies headache(s) and Denies weakness ENT Denies dizziness and Denies headache(s) Card Denies chest pain, Denies lightheadedness, Denies dyspnea and Denies other (Palpitations) Resp Denies cough, Denies dyspnea, Denies wheezing and Denies other ( shortness of breath) GI Denies abdominal pain, Denies melena, Denies hematochezia, Denies change in bowel habits, Denies dyspepsia and Denies nausea Denies hematuria and Denies dysuria Musc Denies abnormal gait, Denies myalgias, Denies arthralgias, Denies numbness and Denies tingling Skin/Breast Denies rash, Denies unusual bruising and Denies wounds Neuro Denies abnormal gait, Denies dizziness, Denies headache(s), Denies memory loss, Denies numbness, Denies Sensory deficit (Neuro), Denies tingling and Denies weakness Psych Reports anxiety, Reports depression, Denies memory loss Endo Denies cold intolerance, Reports fatigue, Denies heat intolerance, Denies polydipsia and Denies polyuria Aller/Immun Denies wheezing Physical exam (Primary Care) Tobacco/Smoking Status: Tobacco use Status Tobacco use date assessed 09/06/24 09/20/24 12:56 Patient Tobacco Use Status Never used Tobacco 09/20/24 12:56 e-Cigarette/Vaping Use Former Use 09/20/24 12:56 Depression Screening Interpretation: Positive Thrive Assessment: Date of Thrive Assessment Date Thrive assessed 08/16/24 09/20/24 12:56 Currently or been in a relationship where the following occur: No concerns reported Const Other: General: no acute distress and well developed Nutritional Appearance: well nourished Orientation/consciousness: patient oriented x3 HENMT Head: Yes normocephalic and Yes atraumatic Eyes General: appearance normal, both eyes and all related structures Pupils: Equal, round and reactive pupils present EOM: EOMs intact bilaterally Resp Effort & Inspection: normal respiratory effort Auscultation: clear to auscultation bilaterally Cardio Rate: regular rate Rhythm: regular rhythm Heart sounds: S1 normal heart sound present, S2 normal heart sound present, no gallops, no murmurs and no rubs GI Palpation (GI): No Abdominal aortic bruit present, Soft to palpation, nontender, No hepatosplenomegaly present and No Rebound tenderness present Auscultation: normal bowel sounds General: Yes no CVA tenderness Back/Spine/Pelvis Back: no CVA tenderness Cervical Spine: cervical ROM normal and No Cervical spine tenderness Thoracic/Lumbar Spine: thoraco-lumbar ROM normal, No pain with thoraco-lumbar ROM, No thoracic spinal tenderness and No lumbar spinal tenderness Extrem General: Yes normal to inspection, No edema and No calf tenderness Skin General: warm and dry. Normal skin color. Normal skin turgor Neuro General: patient oriented x3, gait normal and no focal neuro deficit Cranial nerves: Yes Equal, round and reactive pupils present Cognition (Neuro): normal cognition Gait exam (Neuro): Normal gait present Sensory Exam: No Sensory deficit (Neuro) Psych Appearance: grossly normal Affect: normal affect Attitude: cooperative Thought process: Normal thought process present Coding Level of Care Code Est Pt Level 4 (47132) Diagnoses Anxiety F41.9 Depression F32.A Vitamin D deficiency E55.9 Fatigue R53.83 Dyslipidemia E78.5 Additional Codes LAURA-7 Assessment Billing - LAURA-7 Assessment Tool: LAURA-7 Assessment 41429 ([id number]) PHQ-9 - 70958 - PHQ-9 Billing: Yes ([id number]) Assessment & Plan Assessment & Plan (1) Anxiety: Code(s): F41.9 - Anxiety disorder, unspecified Category: Medical Plan: She continues to experience anxiety and depressive symptoms. Fatigue may be related to depression or vitamin-D deficiency. PHQ-9 and LAURA-7 scores revealed moderately severe depression and moderate anxiety respectively. She experienced adverse reactions after sertraline was increased to 50 mg daily, and stopped taking the medication a few days ago. Will trial Wellbutrin 150 mg daily. Advised to take as prescribed. Instructed on the risks, benefits, and potential adverse reactions of the medication. Encouraged to take vitamin D3 as prescribed. Follow-up in 2 weeks or sooner with worsening or new symptoms. Verbalized understanding and agreed with treatment plan. (2) Depression: Code(s): F32.A - Depression, unspecified Category: Medical Plan: Plan as above (3) Vitamin D deficiency: Code(s): E55.9 - Vitamin D deficiency, unspecified Category: Medical Plan: Recent lab results reviewed with the patient. Vitamin-D level is low, 26.1; may be contributing to her fatigue. Vitamin D3 2000 units daily ordered. Advised to take as prescribed. Will recheck vitamin D level 6 weeks. Verbalized understanding and agreed with the plan. (4) Fatigue: Code(s): R53.83 - Other fatigue Category: Medical Plan: Plan as above. (5) Dyslipidemia: Code(s): E78.5 - Hyperlipidemia, unspecified Category: Medical Plan: Recent LDL level is slightly elevated, 122, HDL level is slightly low, 40. Advised to limit foods high in saturated fat and avoid foods high in trans fat. Routine exercise encouraged. Will recheck lipid panel levels in 3 months. Verbalized understanding and agreed with the plan. Medications: New bupropion HCl SR (Wellbutrin SR) 150 mg PO QAM 30 days 30 tabs 3RF cholecalciferol (vitamin D3) 50 mcg PO DAILY 90 days 90 tabs 1RF
[2024-09-20 13:29] VITALS: BP 121/72; PULSE 93; RESP 16; TEMP 36.2; O2SAT 97; BMI 34.8
== END 2024-09-20 13:51 | disposition home or self-care (01) ==
PROVIDERS: PCP Nurse Practitioner Family; Visit Provider Nurse Practitioner Family
DX: F41.9 Anxiety disorder, unspecified (principal); F32.A Depression, unspecified; E55.9 Vitamin D deficiency, unspecified; R53.83 Other fatigue; E78.5 Hyperlipidemia, unspecified

== ENCOUNTER → 2024-09-20 12:51 | Outpatient (BNVA) | payer OTHER, SELFPAY | PROVIDERS: PCP Nurse Practitioner Family; Visit Provider Nurse Practitioner Family | DX: F41.9 Anxiety disorder, unspecified (principal); F32.A Depression, unspecified; E55.9 Vitamin D deficiency, unspecified; R53.83 Other fatigue; E78.5 Hyperlipidemia, unspecified; Z79.899 Other long term (current) drug therapy | CPT/HCPCS: 96127 ==

== ENCOUNTER 2024-10-11 09:33 | Outpatient (AMB) | payer OTHER, SELFPAY ==
--- NOTE | 2024-10-11 09:37 | A.OFFPC_ITS ---
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 Is last menstrual period known: Yes Last menstrual period: 10/11/24 Post menopausal: No Patient : No Allergies No Known Allergies Allergy (Verified 10/11/24 09:42) Medication List - Last Reconciled 10/11/24 by Pop Faria CNP bupropion HCl SR (Wellbutrin SR) 150 mg PO QAM 30 days cholecalciferol (vitamin D3) 50 mcg PO DAILY 90 days Tobacco use date assessed: 10/11/24 Dental Screening Dental Screen Date: 10/11/24 Did you have a dental visit in the last 12 months?: No Did you have a dental problem in the last 6 months where you did not have access to dental care?: No Was dental information given to patient?: Patient has dentist HPI HPI Comments History of Present Illness Details 24-year-old female presents for anxiety and depression follow-up. She admits to taking bupropion as prescribed without adverse reactions. She notes that her anxiety and depressive symptoms have been significantly improved since starting Bupropion. Her parents notice her improved mood. She has good and bad days but more good days than bad days. She notes that on her bad days, she lacks interests to do things or to socialize with her friends and family. She has trouble falling and staying asleep. She sleeps an average of 5 hours but her sleep is interrupted. She sleeps better on zzzquil. She works second shift (3-11) and thinks that is contributing to her poor sleep. She also notes daily nasal congestion for the past 11 years. She saw an ENT specialist 3-4 years ago and was told there is no significant findings. She has not been exercising. She request FMLA paperwork completed for her employer for days that she will miss due to anxiety and depressive symptoms. 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 1. Little interest or pleasure in doing things: not at all 2. Feeling down, depressed, or hopeless: not at all 3. Trouble falling or staying asleep, or sleeping too much: nearly every day 4. Feeling tired or having little energy: several days 5. Poor appetite or overeating: not at all 6. Feeling bad about yourself - or that you are a failure or have let yourself or your family down: not at all 7. Trouble concentrating on things, such as reading the newspaper or watching television: not at all 8. Moving or speaking so slowly that other people could have noticed. Or the opposite - being so fidgety or restless that you have been moving around a lot more than usual: not at all 9. Thoughts that you would be better off or of hurting yourself in some way : not at all Total score: 4 Depression Screening Interpretation: Negative Depression Screening Done: Yes 12443 - PHQ-9 Billing: Yes Source: Developed by Drs. Clay Avilez, Edilma Dunbar, Jose Carlos Diop and colleagues, with an educational kimberly from [employer]. Thrive Questionnaire Date Thrive assessed: 10/11/24 I am a: Patient What is your living situation today?: I have a steady place to live Within the past 12 months, did the food you bought not last and you didn't have the money to get more?: Sometimes True Within the past 12 months, did you worry whether your food would run out before you got money to buy more?: Sometimes True Do you have trouble paying for medicines?: No Do you have trouble getting transportation to medical appointments?: No Do you have trouble paying your heating and electricity bill?: No Do you have trouble taking care of your child, family member or friend?: No Do you have trouble with day-to-day activities such as bathing, preparing meals, shopping, managing finances, etc.?: No Are you currently unemployed and looking for a job?: No Are you interested in more education?: Yes Please select the resources that you would like help with: Housing/Care Home, Utilities and Education Currently or been in a relationship where the following occur: No concerns rep orted THRIVE Score: 2 AUDIT C Alcohol Use Questionnaire (AUDIT-C) 1. How often do you have a drink containing alcohol?: 2-4 times a month 2. How many drinks containing alcohol do you have on a typical day when you are drinking?: 1 or 2 3. How often do you have six or more drinks on one occasion?: Less than monthly Total Score: 3 LAURA-7 AMB Questionnaire LAURA-7 Date LAURA - 7 assessed: 10/11/24 Feeling nervous, anxious, or on edge: 0 = Not at all Not being able to stop or control worryin = Not at all Worrying too much about different things: 0 = Not at all Trouble relaxin = Not at all Being so restless that it is hard to sit still: 0 = Not at all Becoming easily annoyed or irritable: 0 = Not at all Feeling afraid as if something awful might happen: 0 = Not at all Total LAURA-7 score (0-4 normal; 5-9 mild; 10-14 moderate; 15-21 severe): 0 Source: Developed by Drs. Clay Avilez, Edilma Dunbar, Jose Carlos Diop and colleagues, with an educational kimberly from [employer]. LAURA-7 Assessment Billing LAURA-7 Assessment Tool: LAURA-7 Assessment 44071 Review of Systems Const Details: Const Denies chills, Denies fatigue, Denies fever(s), Denies headache(s) and Denies weakness ENT Denies dizziness and Denies headache(s) Card Denies chest pain, Denies lightheadedness, Denies dyspnea and Denies other (Palpitations) Resp Denies cough, Denies dyspnea, Denies wheezing and Denies other ( shortness of breath) GI Denies abdominal pain, Denies melena, Denies hematochezia, Denies change in bowel habits, Denies dyspepsia and Denies nausea Denies hematuria and Denies dysuria Musc Denies abnormal gait, Denies myalgias, Denies arthralgias, Denies numbness and Denies tingling Skin/Breast Denies rash, Denies unusual bruising and Denies wounds Neuro Denies abnormal gait, Denies dizziness, Denies headache(s), Denies memory loss, Denies numbness, Denies Sensory deficit (Neuro), Denies tingling and Denies weakness Psych Denies anxiety, Denies depression, Denies memory loss Endo Denies cold intolerance, Denies fatigue, Denies heat intolerance, Denies polydipsia and Denies polyuria Aller/Immun Denies wheezing Physical exam (Primary Care) Vital Signs: Last Vital Signs Temp 97.9 F 10/11/24 09:42 Pulse 87 10/11/24 09:42 Resp 16 10/11/24 09:42 BP 130/66 10/11/24 09:42 Pulse Ox 97 10/11/24 09:42 Oxygen Delivery Method Room Air 10/11/24 09:42 BMI result Body Mass Index 35.1 Tobacco/Smoking Status: Tobacco use Status Tobacco use date assessed 10/11/24 10/11/24 09:45 Patient Tobacco Use Status Never used Tobacco 10/11/24 09:40 e-Cigarette/Vaping Use Former Use 10/11/24 09:40 PHQ-9: PHQ-9 Score PHQ-9: Total score 4 10/11/24 09:40 Depression Screening Interpretation: Negative Thrive Assessment: Date of Thrive Assessment Date Thrive assessed 10/11/24 10/11/24 09:40 Currently or been in a relationship where the following occur: No concerns reported Const Other: General: no acute distress and well developed Nutritional Appearance: well nourished Orientation/consciousness: patient oriented x3 HENMT Head: Yes normocephalic and Yes atraumatic Eyes General: appearance normal, both eyes and all related structures Pupils: Equal, round and reactive pupils present EOM: EOMs intact bilaterally Resp Effort & Inspection: normal respiratory effort Auscultation: clear to auscultation bilaterally Cardio Rate: regular rate Rhythm: regular rhythm Heart sounds: S1 normal heart sound present, S2 normal heart sound present, no gallops, no murmurs and no rubs GI Palpation (GI): No Abdominal aortic bruit present, Soft to palpation, nontender, No hepatosplenomegaly present and No Rebound tenderness present Auscultation: normal bowel sounds General: Yes no CVA tenderness Back/Spine/Pelvis Back: no CVA tenderness Cervical Spine: cervical ROM normal and No Cervical spine tenderness Thoracic/Lumbar Spine: thoraco-lumbar ROM normal, No pain with thoraco-lumbar ROM, No thoracic spinal tenderness and No lumbar spinal tenderness Extrem General: Yes normal to inspection, No edema and No calf tenderness Skin General: warm and dry. Normal skin color. Normal skin turgor Neuro General: patient oriented x3, gait normal and no focal neuro deficit Cranial nerves: Yes Equal, round and reactive pupils present Cognition (Neuro): normal cognition Gait exam (Neuro): Normal gait present Sensory Exam: No Sensory deficit (Neuro) Psych Appearance: grossly normal Affect: normal affect Attitude: cooperative Thought process: Normal thought process present Coding Level of Care Code Est Pt Level 4 (41544) Diagnoses Anxiety F41.9 Depression F32.A Sleep disturbance G47.9 Chronic nasal congestion R09.81 Dyslipidemia E78.5 Vitamin D deficiency E55.9 Additional Codes LAURA-7 Assessment Billing - LAURA-7 Assessment Tool: LAURA-7 Assessment 46046 ([id number]) PHQ-9 - 10729 - PHQ-9 Billing: Yes ([id number]) Assessment & Plan Assessment & Plan (1) Anxiety: Code(s): F41.9 - Anxiety disorder, unspecified Category: Medical Plan: Anxiety and depressive symptoms have significantly improved since starting buspirone. She continued to experience episodes of anxiety and depression; however, her symptoms have been less often and less severe. PHQ-9 and LAURA-7 scores are normal. Continue to take Wellbutrin as prescribed. Routine exercise encouraged. [facility] paperwork completed for patient to have 1 or 2 days off from work as needed for worsening of symptoms in the next 1 year. Follow-up in 3 months or sooner with worsening or new symptoms. Verbalized understanding and agreed with treatment plan. (2) Depression: Code(s): F32.A - Depression, unspecified Category: Medical Plan: Plan as above. (3) Sleep disturbance: Code(s): G47.9 - Sleep disorder, unspecified Category: Medical Plan: Chance trouble falling asleep or maintaining sleep. She works 2nd shift and this may be disrupted her sleep. She sleeps better on ZzzQuil. Instructed on sleep hygiene. Will start trazodone 25 mg daily to target sleep disturbance; advised to take as prescribed. Routine exercise encouraged. Follow-up with worsening or new symptoms. Verbalized understanding and agreed with treatment plan. (4) Chronic nasal congestion: Code(s): R09.81 - Nasal congestion Category: Medical Plan: He was evaluated by ENT without significant findings. Allergies is likely. May use a humidifier and saline spray or rinse. Will trial cetirizine 10 mg daily; advised to take as prescribed. Follow-up with worsening or new symptoms. Verbalized understanding and agreed with the plan. (5) Dyslipidemia: Code(s): E78.5 - Hyperlipidemia, unspecified Category: Medical Plan: Advised to limit foods high in saturated fat and avoid foods high in trans fat. Routine exercise encouraged. Advised to fast for 10-12 hours may drink water, and perform blood work before her next visit. Verbalized understanding and agreed with the plan. (6) Vitamin D deficiency: Code(s): E55.9 - Vitamin D deficiency, unspecified Category: Medical Plan: Continue current treatment regimen. Before vitamin-D blood work before next visit. Verbalized understanding and agreed with the plan. Orders: Orders Lipid Panel 3 Months E78.5 - Hyperlipidemia, unspecified Vitamin D 25-OH Total 3 Months E55.9 - Vitamin D deficiency, unspecified Medications: New trazodone 25 mg (1/2 x 50 mg) PO BEDTIME 30 days 15 tabs 3RF cetirizine 10 mg PO DAILY 30 days 30 tabs 3RF
[2024-10-11 09:42] VITALS: BP 130/66; PULSE 87; RESP 16; TEMP 36.6; O2SAT 97; BMI 35.1
== END 2024-10-11 10:27 | disposition home or self-care (01) ==
PROVIDERS: PCP Nurse Practitioner Family; Visit Provider Nurse Practitioner Family
DX: F41.9 Anxiety disorder, unspecified (principal); F32.A Depression, unspecified; G47.9 Sleep disorder, unspecified; R09.81 Nasal congestion; E78.5 Hyperlipidemia, unspecified; E55.9 Vitamin D deficiency, unspecified

== ENCOUNTER → 2024-10-11 09:33 | Outpatient (BNVA) | payer OTHER, SELFPAY | PROVIDERS: PCP Nurse Practitioner Family; Visit Provider Nurse Practitioner Family | DX: F41.9 Anxiety disorder, unspecified (principal); F32.A Depression, unspecified; G47.9 Sleep disorder, unspecified; R09.81 Nasal congestion; E78.5 Hyperlipidemia, unspecified; E55.9 Vitamin D deficiency, unspecified | CPT/HCPCS: 96127 ==

== ENCOUNTER 2024-12-10 14:04 | Outpatient (AMB) | payer OTHER, SELFPAY ==
[2024-12-10 14:08] VITALS: BP 118/68; PULSE 91; TEMP 36.9; O2SAT 98; BMI 35.1
--- NOTE | 2024-12-10 14:08 | AM.OFFWIN_ITS ---
Intake Vital Signs 12/10/24 14:08 Height 5 ft 7 in Weight 224 lb BMI 35.1 BP 118/68 Blood Pressure Location Lt brachial Position Sitting Pulse 91 Pulse Source Pulse Oximeter Temp 98.4 F Temp Source Oral Pulse Oximetry (%) 98 Intake Visit Reasons: EP-sore throat, b/l ear pain, body ache Intake Note: pt is here for sore throat, ear pain and body aches Patient Tobacco Use Status: Never used Tobacco Allergies No Known Allergies Allergy (Verified 12/10/24 14:08) Do you need a note to return to daycare/school/sports/work: Yes HPI EP-sore throat, b/l ear pain, body ache HPI Details 24-year-old female patient presents to the walk-in clinic today with report 2 day history of throat pain, white spots on her tonsils, body aches, ear pain. Denies any fever. 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 She has taken Tylenol without any relief. She states this feels similar to when she had strep last year. 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 Cognitive needs: No Hearing needs: No Vision needs: Yes Review of Systems Const All systems reviewed & are unremarkable except as noted in HPI and below Physical Exam Vital Signs: Last Vital Signs Temp 98.4 F 12/10/24 14:08 Pulse 91 12/10/24 14:08 BP 118/68 12/10/24 14:08 Pulse Ox 98 12/10/24 14:08 BMI result Body Mass Index 35.1 Const General: cooperative, no acute distress and ill appearing acutely Limitations: no limitations HEENT Head: Yes normal to inspection and Yes normocephalic Ears: hearing grossly normal bilaterally and TM's normal bilaterally General nose exam: Normal external nose present Face and sinus: Yes normal facial exam Mouth: Normal oral and palatal mucosa present Throat: Yes posterior oropharynx abnormal ( erythematous) and Yes tonsils absent (tonsilar hypertrophy and exudate) Neck Neck: Yes no lymphadenopathy Resp Effort & Inspection: normal respiratory effort Auscultation: clear to auscultation bilaterally Cardio Rate: regular rate Rhythm: regular rhythm Skin General skin exam: no rashes or lesions noted Extrem General: Yes capillary refill normal and Yes no clubbing, cyanosis or edema Psych Appearance: grossly normal Mental Status: mental status grossly normal Speech and movement: Normal speech and movement present Assessment & Plan Assessment & Plan (1) Pharyngitis: Code(s): J02.9 - Acute pharyngitis, unspecified Qualifiers: Pharyngitis/tonsillitis etiology: unspecified etiology Qualified Code(s): J02.9 - Acute pharyngitis, unspecified Plan: Rapid strep in the office was negative, however symptoms and exam consistent with strep pharyngitis. Will start on Pen V. Patient had strep last year and did well on this medication. we reviewed indications, use, possible side effects of medication. Advised [id number] Tylenol/ Motrin as needed, including lozenges and warm/ saltwater gargles as needed for symptom management. If she does not improve with treatment, she can return to the clinic for further evaluation. Patient verbalizes understanding and agrees to plan. Medications: New penicillin V potassium 500 mg PO BID 10 days 20 tabs 0RF J02.0 - Streptococcal pharyngitis Coding Level of Care Code Est Pt Level 4 (76823) Diagnoses Pharyngitis, unspecified etiology J02.9 Pharyngitis/tonsillitis etiology: unspecified etiology
--- OUTSIDE RECORDS SUMMARY | 2024-12-10 15:44 | XMS_ITS | Clinical Summary ---
Author Organization [facility] Address [address] [place] [address] Care Team Providers Care Commissioning Engineer Name Role Phone Linda Heard NP Primary Care Provider [phone] Allergies No known active allergies Medications Medication Sig Dispensed Refills Start Date End Date Status amoxicillin (AMOXIL) 500 MG capsuleIndications:St rep pharyngitis Take 1 capsule (500 mg total) by mouth 2 (two) times a day. 20 capsule 08/23/2023 Active Active Problems Problem Noted Date Diagnosed Date Vitamin D deficiency 05/08/2021 Low HDL (under 40) 05/08/2021 History of COVID-19 05/08/2021 Assessment & Plan (05/08/2021 11:05 AM EDT): Covid infection diagnosed December 06, symptoms November 30, runny nose, cough, tired Recovered quickly, mild dced quarantine december 13 Post nasal drip 1 week after that and progressing Feels like something stuck in throat Last week had sharp CP, not exertional, hard to breathe, left sided, lasted less than 1 minute Will check CXR and EKG Anxiety and depression 05/08/2021 Assessment & Plan (05/08/2021 12:57 PM EDT): Mild to moderate anxiety and depressive symptoms which patient reports a longstanding with no suicidal intention or concerns for self-harm with patient reports that mildly difficult to function. Reports no success with counseling as she is not comfortable opening up and discussing feelings or previous history . Discussed importance of regular exercise to increase energy level and improve mood and consideration for medications if needed after other more conservative measures have been established Immunizations Name Administration Dates Next Due Covid-19 mRNA Primary Series Vaccine - Moderna 0.5 mL Full Dose 02/12/2021,02/12/2021,12/13/2020,12/13 Covid-19 mRNA Vaccine - Mode rna 0.25 mL Booster 09/22/2021 DTaP 03/02/2001, 0,1999,11/13 HPV Quadrivalent 05/20/2020,01/19/2019, 8 Hepatitis A 05/30/2015,04/20/2014 Hepatitis B 11/20/2007,10/20/2007,09/16/2004 Influenza, Quadrivalent (FLU ARIX, AFLURIA, FLULAVAL, FLUZONE) Preservative Free IM 07/18/2019 MMR 01/20/2013,11/08/2004 Measles 06/20/2000 Meningococcal MCV4O (Menveo) 05/28/2018,04/20/20 14 Meningococcal Serogroup B 3-Dose 03/06/2021,06/0 10/2020,05/20/2020 Mumps 06/20/2000 Pneumococcal Conjugate 7-Valent 01/20/2013 Polio, Unspecified 01/27/2005, 2,02/27/2001,02/26,1999,1999 TD Preservative Free 01/27/2005 Td 01/27/2005 Tdap 02/10/2013 Varicella 01/20/2013,10/06/2008 Varicella Disease Historical/Previous 10/06/2008 Family History * Patient is adopted Medical History Relation Name Comments No Known Problems Father No Known Problems Mother Relation Name Status Comments Father Alive Mother Alive Social History Tobacco Use Types Packs/Day Years Used Date Smoking Tobacco: Former Cigarettes 2 2011 Smokeless Tobacco: Never Tobacco Cessation:Counseling Given: No Comments:1 cigar Alcohol Use Standard Drinks/Week Comments Not Currently 0 (1 standard drink = 0.6 oz pure alcohol) OCCASIONALLY - special occasions PHQ-2 Answer Date Recorded PHQ-2 Total Score 0 05/08/2021 Sex and Gender Information Value Date Recorded Sex Assigned at Not on file Gender Identity Not on file Sexual Orientation Not on file Last Filed Vital Signs Vital Sign Reading Time Taken Comments Blood Pressure 122/88 08/23/2023 12:51 PM EST Pulse 117 08/23/2023 12:51 PM EST Temperature 36.9 ??C (98.4 ??F) 08/23/2023 12:[address] Respiratory Rate 18 08/23/2023 12:51 PM EST Oxygen Saturation 97% 08/23/2023 12:51 PM EST Inhaled Oxygen Concentration - - Weight 86.2 kg (190 lb) 08/23/2023 12:51 PM EST Height 167.6 cm (5' 6 ) 08/23/2023 12:51 PM EST Body Mass Index 30.67 08/23/2023 12:51 PM EST Plan of Treatment Health Maintenance Due Date Last Done Comments Hepatitis B Vaccines (4 of 4 - 4-dose series) 12/15/2007 11/20/2007, 10/20/2007, 09/16/2004 DTaP/Tdap/Td Vaccines (6 - Td or Tdap) 02/10/2023 02/10/2013, 01/27/2005, 01/27/2005, Additional history exists Influenza Vaccine 05/06/2024 06/08/2022, , 07/18/2019 Pap Smear (Ages 21-65) 05/08/2024 05/08/2021 COVID-19 Vaccine (2023- season) 2024 09/22/2021, 02/12/2021, 02/12/2021, Additional history exists Pneumococcal Vaccine: Pediatric (0-5 Years) and At-Risk Patients (6 to 49 Years) Aged Out 01/20/2013 No longer eligible based on patient's age to complete this topic HPV Vaccines Completed 05/20/2020, 01/04, 05/28/2018 HIV Screening Completed 05/08/2021 Hepatitis C Virus Screening Completed 05/08/2021 Procedures Procedure Name Priority Date/Time Associated Diagnosis Comments HIV 1/2 AG/AB CMIA REFLEX TO CONFIRMATION Routine 05/08/2021 12:38 PM EDT Health care maintenance HEPATITIS C VIRUS (HCV) ANTIBODY Routine 05/08/2021 12:38 PM EDT Health care maintenance THINPREP PAP TEST (LINE BUILDER) WITH HPV SCREEN Routine 05/08/2021 12:00 AM EDT Yeast infection Vaginal discharge from Last 3 Months or Most Recently Relevant to Health Maintenance Results * HIV 1/2 Ag/Ab CMIA Reflex to Confirmation (05/08/2021 12:38 PM EDT) HIV Ag/Ab, 4th Gen NON-REACT LANDON NON-REACT LANDON [facility] Comment: HIV-1 antigen and HIV-1/HIV-2 antibodies were not detected. There is no laboratory evidence of HIV infection. PLEASE NOTE: This information has been disclosed to you from records whose confidentiality may be protected by state law. ??If your state requires such protection, then the state law prohibits you from making any further disclosure of the information without the specific written consent of the person to whom it pertains, or as otherwise permitted by law. A general authorization for the release of medical or other information is NOT sufficient for this purpose. ?? For additional information please refer to http://education.SafeTool/faq/PLM511 (This link is being provided for informational/ educational purposes only.) The performance of this assay has not been clinically validated in patients less than 2 years old. Blood specimen (specimen) Blood specimen / Unknown 05/08/2021 12:38 PM EDT 05/08/2021 12:40 PM EDT Narrative [facility] - 05/09/2021 4:11 AM EDT FASTING:YES FASTING: YES Kenya Metz MD LAB BLOOD ORDERABLE S [facility] [address] [place] [address], [place] [address] * Hepatitis C Virus (HCV) Antibody (05/08/2021 12:38 PM EDT) Hepatitis C Antibody NON-REACT LANDON NON-REACT LANDON [facility] Hepatitis C Antibody (s/co) 0.01 <1.00 [facility] Comment: HCV antibody was non-reactive. There is no laboratory evidence of HCV infection. In most cases, no further action is required. However, if recent HCV exposure is suspected, a test for HCV RNA (test code 10652) is suggested. For additional information please refer to http://education.SafeTool/faq/YEP90p1 (This link is being provided for informational/ educational purposes only.) Blood specimen (specimen) Blood specimen / Unknown 05/08/2021 12:38 PM EDT 05/08/2021 12:40 PM EDT Narrative [facility] - 05/09/2021 4:11 AM EDT FASTING:YES FASTING: YES Kenya Metz MD LAB BLOOD ORDERABLE S [facility] [address] [place] [address], [place] [address] * ThinPrep Pap Test (Career Orientation Teacher) with HPV Screen (05/08/2021 12:00 AM EDT) Clinical Information None given [facility] LMP: 04/12/21 [facility] Previous PAP: NONE GIVEN [facility] Previous Biopsy NONE GIVEN [employer] Source: Endocervix [facility] Statement of Adequacy: [facility] Comment: Satisfactory for evaluation. Endocervical/transformation zone component present. Interpretation/Re sult: Negative for intraepithelial lesion or malignancy. [facility] Comment: This Pap test has been evaluated with computer assisted technology. [facility] Outer Diameter Technician: [facility] Comment: EVANA, CT(ASCP) CT screening location: [address] ??[id number] Comment [facility] Comment: EXPLANATORY NOTE: The Pap is a screening test for cervical cancer. It is not a diagnostic test and is subject to false negative and false positive results. It is most reliable when a satisfactory sample, regularly obtained, is submitted with relevant clinical findings and history, and when the Pap result is evaluated along with historic and current clinical information. Hpv Mrna E6E7 Not Detected Not Detected [facility] Comment: Methodology: Oracle Technical Architect-Mediated Amplification This assay detects E6/E7 viral messenger RNA (mRNA) from 14 high-risk HPV types (16,18,31,33,35,39,45,51,52,56,58,59,66,68). The analytical performance characteristics of this assay have been determined by [employer]. The modifications have not been cleared or approved by the FDA. This assay has been validated pursuant to the CLIA regulations and is used for clinical purposes. For additional information, please refer to http://education.SafeTool/faq/OZP198x0 (This link if provided for information/ educational purposes only.) 05/08/2021 05/09/2021 11: 31 AM EDT Narrative [facility] - 05/10/2021 2:43 AM EDT FASTING: UNKNOWN Kenya Metz MD LAB AMB PATH/CYTO O RDERABLES [facility] [address] [place] [address], [place] [address] from Last 3 Months or Most Recently Relevant to Health Maintenance Care Teams Commissioning Engineer Relationship Specialty Start Date End Date Linda Heard NP [address] [place] [address] PCP - General Family Medicine 08/14/23
--- OUTSIDE RECORDS SUMMARY | 2024-12-10 15:44 | XMS_ITS | Encounter Summary ---
Author Organization [facility] Address [address] [place] [address] Care Team Providers Care Auto Tech Name Role Phone Kenya Metz MD Primary Care Provider [phone] Kenya Metz MD Unavailable Linda Heard NP Primary Care Provider [phone] Lary Shepard APRN Unavailable [phone] Encounter Details Date Type Department Care Team (Late st Contact Info) Description 06/05/2021 Scanned Document [facility] [address] [place] [id number] Provider, External, [address] [place] [id number] Social History Tobacco Use Types Packs/Day Years Used Date Smoking Tobacco: Former Cigarettes 2011 Smokeless Tobacco: Never Comments:1 cigar Alcohol Use Standard Drinks/Week Comments Yes 0 (1 standard drink = 0.6 oz pure alcohol) OCCASIONALLY - special occasions PHQ-2 Answer Date Recorded PHQ-2 Total Score 0 05/08/2021 Sex and Gender Information Value Date Recorded Sex Assigned at Not on file Gender Identity Not on file Sexual Orientation Not on file COVID-19 Exposure Response Date Recorded In the last month, have you been in contact with someone who was confirmed or suspected to have Coronavirus / COVID-19? No / Unsure 05/16/2021 9:24 AM EDT documented as of this encounter Plan of Treatment Not on file documented as of this encounter Visit Diagnoses Not on filedocumented in this encounter Care Teams Auto Tech Relationship Specialty Start Date End Date Kenya Metz MD [address] [facility] [address] [place] [address] PCP - General Internal Medicine 05/08/21 08/13/23 Kenya Metz MD [address] [facility] [address] [place] [address] PCP - [place] [employer] Attributed 07/06/22 07/05/23 Linda Heard NP [address] [place] [address] PCP - General Family Medicine 08/14/23 Lary Shepard APRN [address] [facility] [address] [place] [address] PCP - [place] [employer] Attributed 07/06/23 10/05/23 documented as of this encounter
== END 2024-12-10 14:55 | disposition home or self-care (01) ==
PROVIDERS: PCP Nurse Practitioner Family; Visit Provider Nurse Practitioner Family
DX: J02.9 Acute pharyngitis, unspecified (principal)

== ENCOUNTER → 2024-12-10 14:04 | Outpatient (BNVA) | payer OTHER, SELFPAY | PROVIDERS: PCP Nurse Practitioner Family ==

== ENCOUNTER 2024-12-20 14:20 | Outpatient (AMB) | payer OTHER, SELFPAY ==
--- NOTE | 2024-12-20 14:16 | MHC.PC.OV ---
Intake Visit Reasons: Weigh Loss Options Intake Note: patient is her to talk about weight loss options Petrophysicist Required: No Is last menstrual period known: Yes Last menstrual period: 12/20/24 Post menopausal: No Patient : No Allergies No Known Allergies Allergy (Verified 12/20/24 14:16) Tobacco use date assessed: 12/20/24 Dental Screening Dental Screen Date: 12/20/24 Did you have a dental visit in the last 12 months?: No Did you have a dental problem in the last 6 months where you did not have access to dental care?: No Was dental information given to patient?: Patient has dentist HPI HPI Comments History of Present Illness Details 24-year-old female presents for telehealth visit for weight management. She notes that she was contacted by [facility] weight management clinic and after series of questions, she was informed the she did not qualify for their weight loss program. She is considering GLP 1 for weight management. However, she has concerns regarding interaction with GLP 1 and her Nexplanon. Denies history of pancreatitis or a personal or family history of medullary thyroid cancer or multiple endorcine neoplasia. She has been making healthy dietary choices and exercising routinely. 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 Cognitive needs: No Hearing needs: No Vision needs: Yes Female Reproductive History Menstrual Date of last menstrual period: 12/20/24 Questionnaire Thrive Questionnaire Date Thrive assessed: 10/11/24 I am a: Patient What is your living situation today?: I have a steady place to live Within the past 12 months, did the food you bought not last and you didn't have the money to get more?: Sometimes True Within the past 12 months, did you worry whether your food would run out before you got money to buy more?: Sometimes True Do you have trouble paying for medicines?: No Do you have trouble getting transportation to medical appointments?: No Do you have trouble paying your heating and electricity bill?: No Do you have trouble taking care of your child, family member or friend?: No Do you have trouble with day-to-day activities such as bathing, preparing meals, shopping, managing finances, etc.?: No Are you currently unemployed and looking for a job?: No Are you interested in more education?: Yes Currently or been in a relationship where the following occur: No concerns reported THRIVE Score: 2 LAURA-7 AMB Questionnaire LAURA-7 Date LAURA - 7 assessed: 10/11/24 Source: Developed by Drs. Clay Avilez, Edilma Dunbar, Jose Carlos Diop and colleagues, with an educational kimberly from [employer]. Review of Systems Const Details: Denies chills, Denies fatigue, Denies fever(s), Denies headache(s) and Denies weakness Cardiac Denies chest pain, Denies claudication, Denies leg edema, Denies lightheadedness, Denies palpitations, Denies dyspnea, Denies dyspnea on exertion, Denies orthopnea and Denies other (Loss of consciousness) Resp Denies cough, Denies excessive phlegm production, Denies dyspnea, Denies dyspnea on exertion, Denies snoring and Denies wheezing Physical exam (Primary Care) Tobacco/Smoking Status: Tobacco use Status Tobacco use date assessed 12/20/24 12/20/24 14:19 Patient Tobacco Use Status Never used Tobacco 12/20/24 14:19 e-Cigarette/Vaping Use Former Use 12/20/24 14:19 Thrive Assessment: Date of Thrive Assessment Date Thrive assessed 10/11/24 12/20/24 14:19 Currently or been in a relationship where the following occur: No concerns reported Const Other: Patient is alert and oriented x3. Telehealth Telehealth Telehealth Platform: Telephone Location of provider rendering services: practice address Location of patient: address on file Patient Identification confirmed using: Name, : Yes Telehealth method: voice only Patient verbally consented to treatment: Yes Patient verbally consented to billing insurance company: Yes Patient informed of any privacy concerns related to visit: Yes Coding Level of Care Code Tele Est Pt Level 3 (42172) Diagnoses Encounter for weight management Z76.89 Time Spent (min) 15 Assessment & Plan Assessment & Plan (1) Encounter for weight management: Code(s): Z76.89 - Persons encountering health services in other specified circumstances Category: Medical Plan: Recent recorded weight is 224 lb, BMI is 35.1. She is interested in GLP 1 treatment for weight management but has concerns regarding possible interaction with her Nexplanon. Instructed that Nexplanon implant and GLP is a safer treatment option versus oral contraceptive. Advised to contact her health plan to determine whether GLP 1 is covered and advise her PCP. Healthy diet and routine exercise encouraged. Follow-up as planned next month. Verbalized understanding and agreed with treatment plan.
== END 2024-12-20 15:33 | disposition home or self-care (01) ==
LOC: HO.HMCFM 14:20
PROVIDERS: PCP Nurse Practitioner Family; Visit Provider Nurse Practitioner Family
DX: E66.9 Obesity, unspecified (principal); Z76.89 Persons encountering health services in other specified circumstances

== ENCOUNTER 2025-01-26 08:04 | Outpatient (AMB) | payer OTHER, SELFPAY ==
--- OUTSIDE RECORDS SUMMARY | 2025-01-26 08:11 | XMS_ITS | Clinical Summary ---
Author Organization [facility] Address [address] [place] [address] Care Team Providers Care Health Assistant Name Role Phone Linda Heard NP Primary Care Provider [phone] Allergies No known active allergies Medications amoxicillin (AMOXIL) 500 MG capsuleIndicatio ns:Strep pharyngitis Take 1 capsule (500 mg total) [...] more conservative measures have been established Immunizations Immunization Administration Dates Next Due Covid-19 mRNA Primary [...] Date Recorded PHQ-2 Total Score 0 05/08/2021 Comments No Sex and Gender Information Value Date Recorded Sex Assigned at Not on file Legal Sex Female 12:19 PM EDT Gender Identity Not on file Sexual Orientation Not on file 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 on file Not on file Not on file Last Filed Vital Signs [...] Smear (Ages 21-65) 05/08/2024 05/08/2021 COVID-19 Vaccine ( season) 2024 09/22/2021, 02/12/2021, 02/12/2021, Additional history [...] EDT Health care maintenance THINPREP PAP TEST (SUPERVISOR BUFFING AND PASTING) WITH HPV SCREEN Routine 05/08/2021 12:00 AM EDT Yeast infection Vaginal discharge from Last 3 Months or Most Recently Relevant to Health Maintenance Results * HIV 1/2 Ag/Ab CMIA Reflex to Confirmation (05/08/2021 12:38 PM EDT) HIV Ag/Ab, 4th Gen NON-REACT LANDON NON-REACT LANDON [facility] Comment: HIV-1 antigen and HIV-1/HIV-2 antibodies were [...] ?? For additional information please refer to http://education.Bioheart.Critical Pharmaceuticals/faq/LLX988 (This link is being provided for informational/ educational purposes only.) The performance of this assay has not been clinically validated in patients less than 2 years old. Blood specimen (specimen) Blood specimen / Unknown 05/08/2021 12:38 PM EDT 05/08/2021 12:40 PM EDT Narrative [facility] - 05/09/2021 4:11 AM EDT FASTING:YES FASTING: YES us Kenya Metz MD LAB BLOOD ORDERABLES Final Result [facility] [address] [place] [address], [place] [address] * Hepatitis C Virus (HCV) Antibody (05/08/2021 12:38 PM EDT) Hepatitis C Antibody NON-REACT LANDON NON-REACT LANDON [facility] Hepatitis C Antibody (s/co) 0.01 <1.00 [facility] Comment: HCV antibody was non-reactive. There is no laboratory evidence of HCV infection. In most cases, no further action is required. However, if recent HCV exposure is suspected, a test for HCV RNA (test code 17329) is suggested. For additional information please refer to http://education.ConnectSoft/faq/STN53x6 (This link is being provided for informational/ educational purposes only.) Blood specimen (specimen) Blood specimen / Unknown 05/08/2021 12:38 PM EDT 05/08/2021 12:40 PM EDT Narrative [facility] - 05/09/2021 4:11 AM EDT FASTING:YES FASTING: YES us Kenya Metz MD LAB BLOOD ORDERABLES Final Result [facility] [address] [place] [address], [place] [address] * ThinPrep Pap Test (Wet Wash Assembler) with HPV Screen (05/08/2021 12:00 AM EDT) Clinical Information None given [facility] LMP: 04/12/21 [facility] Previous PAP: NONE GIVEN [facility] Previous Biopsy NONE GIVEN [facility] Source: Endocervix [facility] Statement of Adequacy: [facility] Comment: Satisfactory for evaluation. Endocervical/transformation zone component present. Interpretation/Re sult: Negative for intraepithelial lesion or malignancy. [facility] Comment: This Pap test has been evaluated with computer assisted technology. [facility] Patcher Wood Welder: [facility] Comment: ADELA KUMAR(ASCP) CT screening location: [address] ??[id number] Comment [facility] Comment: EXPLANATORY NOTE: The Pap is a [...] Hpv Mrna E6E7 Not Detected Not Detected [facility] Comment: Methodology: Wood Form Builder-Mediated Amplification This assay detects E6/E7 viral messenger RNA (mRNA) from 14 high-risk HPV types (16,18,31,33,35,39,45,51,52,56,58,59,66,68). The analytical performance characteristics of this assay have been determined by [employer]. The modifications have not been cleared or approved by the FDA. This assay has been validated pursuant to the CLIA regulations and is used for clinical purposes. For additional information, please refer to http://education.ConnectSoft/faq/CIV581d5 (This link if provided for information/ educational purposes only.) 05/08/2021 05/09/2021 11: 31 AM EDT Narrative [facility] - 05/10/2021 2:43 AM EDT FASTING: UNKNOWN us Kenya Metz MD LAB AMB PATH/CYTO ORDERABLE S Final Result [facility] [address] [place] [address], [place] [address] from Last 3 Months or Most Recently Relevant to Health Maintenance [facility] Care Teams Health Assistant Relationship Specialty Start Date End Date Linda Heard NP [address] [place] [address] PCP - General Family Medicine 08/14/23
--- OUTSIDE RECORDS SUMMARY | 2025-01-26 08:11 | XMS_ITS | Encounter Summary ---
Author Organization [facility] Address [address] [place] [address] Care Team Providers Care Hospitality Manager Name Role Phone Kenya Metz MD Primary Care Provider [phone] Kenya Metz MD Unavailable Linda Heard NP Primary Care Provider [phone] Lary Shepard APRN Unavailable Encounter Details Date Type Department Care Team (Late st Contact Info) Description 06/05/2021 Scanned Document [facility] [address] [place] [phone] Provider, Meka, [address] [place] [address] Social History Tobacco Use Types Packs/Day Years [...] on filedocumented in this encounter Care Teams Hospitality Manager Relationship Specialty Start Date End Date Kenya Metz MD [address] [facility] [address] [place] [address] PCP - General Internal Medicine 05/08/21 08/13/23 Kenya Metz MD [address] [facility] [address] [place] [address] PCP - [employer] [place] [employer] Attributed 07/06/22 07/05/23 Linda Heard NP [address] [place] [address] PCP - General Family Medicine 08/14/23 Lary Shepard APRN [address] [place] [address] PCP - [employer] Attributed 07/06/23 10/05/23 documented as of this encounter
--- NOTE | 2025-01-26 09:06 | A.OFFVIS_ITS ---
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* Allergies No Known Allergies Allergy (Verified 01/26/25 09:06) Medication List - Last Reconciled 01/26/25 by Albin Valdovinos MD cholecalciferol (vitamin D3) 50 mcg PO DAILY 90 days trazodone 25 mg (1/2 x 50 mg) PO BEDTIME 90 days HPI HPI [employer] *SEE COMMENTS*: Details: Start time: 9.01am, End time: 9.51am ?I spent 45 minutes speaking with the patient on the phone plus an additional 5 minutes reviewing and updating records for a total of 50 minutes HPI Comments Details: Previous weight loss efforts: self diet and exercise Wakes up: 5.30am, Sleeps: 9pm Breakfast: skips Lunch: 11am (rice or egg salad) Dinner: skips Snacks: snacks 1-2 after dinner (nuts or fruits) Exercise: none Beverages: Coffee (8oz per day with cream and sugar), tea: (Hot tea: 1 cup/day plain), soda: (regular Coke 2/wk), juice: (Cranberry juice: daily), ETOH: none PFSH Medical History (Updated 01/26/25 @ 09:39 by Albin Valdovinos MD) Insomnia No pertinent family history High cholesterol Depression Anxiety Surgical History No pertinent past surgical history Social History Housing: Apartment Patient Tobacco Use Status: Never used Tobacco e-Cigarette/Vaping Use: Former Use Second Hand Smoke Exposure: No service: No Current occupational status: employed Current occupation: [employer] Cognitive needs: No Hearing needs: No Vision needs: Yes Telehealth Telehealth Telehealth Platform: Telephone Location of provider rendering services: practice address Location of patient: address on file Patient Identification confirmed using: Name, : Yes Telehealth method: voice only Patient verbally consented to treatment: Yes Patient verbally consented to billing insurance company: Yes Patient informed of any privacy concerns related to visit: Yes Minutes spent on Phone/Video with Pt.: 50 Assessment & Plan Assessment & Plan (1) Obesity: Code(s): E66.9 - Obesity, unspecified Category: Medical Qualifiers: Obesity type: due to excess calories Obesity classification: adult class 2 (BMI 35 - 39.9) Serious obesity comorbidity presence: with serious comorbidity Body mass index: BMI 35.0-35.9 Qualified Code(s): E66.812 - Obesity, class 2; E66.01 - Morbid (severe) obesity due to excess calories; Z68.35 - Body mass index [BMI] 35.0-35.9, adult Plan: 1.? Plan for lap sleeve gastrectomy. If diaphragmatic or ventral hernias a re present at time of surgery, these will be repaired laparoscopically as well. I emphasized the importance of close follow-up, adherence to instructions and good communication. The surgery does not replace the need to change your lifestlyle which is the cause of the obesity problem. The surgery provides the motivation to try again to change your lifestyle, it reduces the appetite and make the transition to a better lifestyle easier and doubles the amount of weight you would lose compared to doing the lifestyle change without the surgery. You will need to be on a liquid diet with protein shakes for 2 weeks before surgery to maximize weight loss and boost your nutritional status to recover better from surgery and also for the first two weeks after surgery to let the stomach heal before we introduce other foods. After the first 2 weeks we will introduce protein bars and soft foods like scrambled eggs, cottage cheese and yogurt and after the 6th week will introduce meat, fish and cooked vegetables in small amounts. Over time you should be able to eat everything in small amounts. Side effects like nausea, vomiting, heartburn or abdominal pain are not common in the practice unless you are not following in the practice. This operation requires lifetime commitment to following in our practice and communication with me. You will much less weight and experience side effects if you don?t communicate or not following in the practice. Complications are rare and in our practice is about 1/10 of the national average. However, you can develop bleeding that may require transfusion (hasn?t happened for year in the practice), you may from complications (we did not have any deaths in the practice) and infections. Infections are usually a result of breakdown in com munication or not understanding or following directions correctly. They are difficult to treat, they can happen during the first 6 weeks, they may require to be in the hospital for weeks or even months, not being able to eat by mouth and you may have drains and surgeries to try and correct the issue. Other risks and complications include possible conversion to an open procedure, leaks, small bowel obstruction, blood clots, cardiac, or pulmonary complications, as long-term complications such as ulcers, insufficient weight loss and vitamin deficiencies. 2. You will receive a link of our software ricky to generate an individualized nutritional and exercise plan specific for you. Please send me a screenshot of the plans you will generate Meal to include lean meat (beef, fish, pork, turkey, chicken), or south korean yogurt, or egg whites, or beans with a salad with olive oil and fruits (berries, pears, apples, kiwi). Avoid salt, breads, potatoes, rice, pasta, desserts. ?3. If you choose shakes, each shake would be drunk slowly, like coffee in a period of 2 hours. ?4. If you choose bars, cut each bar in 4 pieces and eat each piece in 30min ?to make each bar last 2 hours. ?5. I emphasized the importance of measuring accurately the food portion and measure it when serving the food in plate ?6. The meal portions include a specific number of forks of meat and salad. You always eat the meat portion but you can replace up to half of salad/vegetables portion with rice, potatoes or pasta, or a fruit ?if you like. The less you do it the better weight loss will be. ?7. One full-size fork is what it can be scooped on the fork without falling aside and not what can be bit with the fork. Use regular forks like those you find in a typical restaurant. ?8.? Please buy the body composition scale we discussed and send me weight measurements as soon as possible and then once a week. Always include your diet and exercise plan. 9. The best choice would be to purchase a stationary bike, elliptical or treadmill at home that can track calories. Let me know if you do so I can give you an exercise plan. 9. The best exercise choice would be to use your treadmill at home that can track calories. You can create and exercise plan with the [employer] ricky. ?10.?It is important of avoiding and for at least 18 months postoperatively and has been discussed at the infosession. ?11. Goal is to lose at least 1.5-2lbs per week ?12. Goal to lose 10% of your weight before surgery, which is about 22lbs. Ultimate weight goal: 200lbs before surgery 13. Please follow the diet plan exactly without any change. If you don't like something about the plan or you feel hungry you need to communicate with me so I can help you revise the plan. You should not change the plan yourself. 14. To be scheduled for EGD due to the history of sleeve gastrectomy and anemia. The possibility of biopsies was discussed. Patient needs to avoid use of NSAIDs and aspirin for 1 week prior to EGD. You must be on liquids only the day before your endoscopy. Risks of perforation and bleeding was discussed with the patient. This will be an outpatient procedure with IV sedation. Orders: Orders Hemoglobin A1c Today E66.9 - Obesity, unspecified, Z68.35 - Body mass index [BMI] 35.0-35.9, adult Zinc Today E66.9 - Obesity, unspecified, Z68.35 - Body mass index [BMI] 35.0- 35.9, adult C Reactive Protein Today E66.9 - Obesity, unspecified, Z68.35 - Body mass index [BMI] 35.0-35.9, adult Ferritin Today E66.9 - Obesity, unspecified, Z68.35 - Body mass index [BMI] 35.0-35.9, adult Vitamin D 25-OH Total Today E66.9 - Obesity, unspecified, Z68.35 - Body mass index [BMI] 35.0-35.9, adult XR chest 2V Today E66.9 - Obesity, unspecified, Z68.35 - Body mass index [BMI] 35.0-35.9, adult ECG 12 lead EKG Today E66.9 - Obesity, unspecified, Z68.35 - Body mass index [BMI] 35.0-35.9, adult Insulin Today E66.9 - Obesity, unspecified, Z68.35 - Body mass index [BMI] 35.0-35.9, adult H Pylori Breath Test Today E66.9 - Obesity, unspecified, Z68.35 - Body mass index [BMI] 35.0-35.9, adult Complete Blood Count Auto Diff Today E66.9 - Obesity, unspecified, Z68.35 - Body mass index [BMI] 35.0-35.9, adult Lipid Panel Today E66.9 - Obesity, unspecified, Z68.35 - Body mass index [BMI] 35.0-35.9, adult IRON PROFILE Today E66.9 - Obesity, unspecified, Z68.35 - Body mass index [BMI] 35.0-35.9, adult Comprehensive Met. Panel Today E66.9 - Obesity, unspecified, Z68.35 - Body mass index [BMI] 35.0-35.9, adult Vitamin B12 and Folate Today E66.9 - Obesity, unspecified, Z68.35 - Body mass index [BMI] 35.0-35.9, adult Vitamin B1 Today E66.9 - Obesity, unspecified, Z68.35 - Body mass index [BMI] 35.0-35.9, adult Vitamin A Today E66.9 - Obesity, unspecified, Z68.35 - Body mass index [BMI] 35.0-35.9, adult TSH reflex Free T4 Today E66.9 - Obesity, unspecified, Z68.35 - Body mass index [BMI] 35.0-35.9, adult US abdomen comp w elastography Today E66.9 - Obesity, unspecified, Z68.35 - Body mass index [BMI] 35.0-35.9, adult FL upper GI w air Today E66.9 - Obesity, unspecified, Z68.35 - Body mass index [BMI] 35.0-35.9, adult Referrals Behavioral Health Referral E66.9 - Obesity, unspecified, Z68.35 - Body mass index [BMI] 35.0-35.9, adult Nutrition/Dietitian Referral E66.9 - Obesity, unspecified, Z68.35 - Body mass index [BMI] 35.0-35.9, adult
[2025-01-26 09:25] VITALS: BMI 34.8
== END 2025-01-26 09:52 | disposition home or self-care (01) ==
LOC: HO.HBS 08:04
PROVIDERS: PCP Nurse Practitioner Family; Visit Provider Surgery
DX: E66.812 Obesity, class 2 (principal); E66.01 Morbid (severe) obesity due to excess calories; Z68.34 Body mass index [BMI] 34.0-34.9, adult
CPT/HCPCS: 98010

== ENCOUNTER 2025-03-15 14:51 | Outpatient (AMB) | payer OTHER, SELFPAY ==
--- NOTE | 2025-03-15 15:08 | MHC.PC.OV ---
Vital Signs 03/15/25 15:13 Height 5 ft 7 in Weight 217 lb 6 oz BMI 34.0 BP 118/66 Blood Pressure Location Lt brachial Position Sitting Respiration 16 Pulse 85 Pulse Source Pulse Oximeter Temp 98.5 F Temp Source Oral Pulse Oximetry (%) 100 Oxygen Delivery Method Room Air Intake Visit Reasons: liposuction Intake Note: patient here to speak to provider about liposuction. Search Marketing Coordinator Required: No Is last menstrual period known: No (on control) Post menopausal: No Patient : No Allergies No Known Allergies Allergy (Verified 03/15/25 15:18) Medication List - Last Reviewed 03/15/25 by Kristine Contreras MA bupropion HCl XL (Wellbutrin XL) 150 mg PO QAM cholecalciferol (vitamin D3) 50 mcg PO DAILY 90 days tirzepatide (weight loss) (Zepbound) 5 mg (0.5 mL) subcut QWEEK tirzepatide (weight loss) (Zepbound) 2.5 mg (0.5 mL) subcut QWEEK 4 weeks tirzepatide (weight loss) (Zepbound) 5 mg (0.5 mL) subcut QWEEK trazodone 25 mg (1/2 x 50 mg) PO BEDTIME 90 days Tobacco use date assessed: 03/15/25 Dental Screening Dental Screen Date: 03/15/25 Did you have a dental visit in the last 12 months?: Yes Did you have a dental problem in the last 6 months where you did not have access to dental care?: No Was dental information given to patient?: Patient has dentist HPI HPI Comments History of Present Illness Details 24-year-old female presents with requests for a referral for liposuction to her abdominal area and things. She is currently on Zepbound which her health plan does not cover; [id number] cost is significant. She does not want to do gastric bypass recommended by [facility] [place] [place] weight management. She requests referral to [facility]. She notes that her anxiety and depressive symptoms have been well-controlled. She has been taking bupropion 150 mg daily and trazodone 25 mg at bedtime. She denies acute symptoms at this time. 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 1. Little interest or pleasure in doing things: several days 2. Feeling down, depressed, or hopeless: several days 3. Trouble falling or staying asleep, or sleeping too much: nearly every day 4. Feeling tired or having little energy: more than half the days 5. Poor appetite or overeating: several days 6. Feeling bad about yourself - or that you are a failure or have let yourself or your family down: several days 7. Trouble concentrating on things, such as reading the newspaper or watching television: several days 8. Moving or speaking so slowly that other people could have noticed. Or the opposite - being so fidgety or restless that you have been moving around a lot more than usual: not at all 9. Thoughts that you would be better off or of hurting yourself in some way: not at all Total score: 10 Depression Screening Interpretation: Positive Depression Screening Follow-up: Existing condition and In treatment Depression Screening Done: Yes 41157 - PHQ-9 Billing: Yes Source: Developed by Drs. Clay Avilez, Edilma Dnubar, Jose Carlos Diop and colleagues, with an educational kimberly from [employer]. Thrive Questionnaire Date Thrive assessed: 10/11/24 I am a: Patient What is your living situation today?: I have a steady place to live Within the past 12 months, did the food you bought not last and you didn't have the money to get more?: Sometimes True Within the past 12 months, did you worry whether your food would run out before you got money to buy more?: Sometimes True Do you have trouble paying for medicines?: No Do you have trouble getting transportation to medical appointments?: No Do you have trouble paying your heating and electricity bill?: No Do you have trouble taking care of your child, family member or friend?: No Do you have trouble with day-to-day activities such as bathing, preparing meals, shopping, managing finances, etc.?: No Are you currently unemployed and looking for a job?: No Are you interested in more education?: Yes Currently or been in a relationship where the following occur: No concerns reported THRIVE Score: 2 LAURA-7 AMB Questionnaire LAURA-7 Date LAURA - 7 assessed: 03/15/25 Feeling nervous, anxious, or on edge: 1 = Several days Not being able to stop or control worryin = Several days Worrying too much about different things: 1 = Several days Trouble relaxin = Several days Being so restless that it is hard to sit still: 1 = Several days Becoming easily annoyed or irritable: 1 = Several days Feeling afraid as if something awful might happen: 0 = Not at all Total LAURA-7 score (0-4 normal; 5-9 mild; 10-14 moderate; 15-21 severe): 6 Source: Developed by Drs. Clay Avilez, Edilma Dunbar, Jose Carlos Diop and colleagues, with an educational kimberly from [employer]. LAURA-7 Assessment Billing LAURA-7 Assessment Tool: LAURA-7 Assessment 51533 Review of Systems Const Details: Const Denies chills, Denies fatigue, Denies fever(s), Denies headache(s) and Denies weakness ENT Denies dizziness and Denies headache(s) Card Denies chest pain, Denies lightheadedness, Denies dyspnea and Denies other (Palpitations) Resp Denies cough, Denies dyspnea, Denies wheezing and Denies other ( shortness of breath) GI Denies abdominal pain, Denies melena, Denies hematochezia, Denies change in bowel habits, Denies dyspepsia and Denies nausea Denies hematuria and Denies dysuria Musc Denies abnormal gait, Denies myalgias, Denies arthralgias, Denies numbness and Denies tingling Skin/Breast Denies rash, Denies unusual bruising and Denies wounds Neuro Denies abnormal gait, Denies dizziness, Denies headache(s), Denies memory loss, Denies numbness, Denies Sensory deficit (Neuro), Denies tingling and Denies weakness Psych Denies anxiety, Denies depression, Denies memory loss Endo Denies cold intolerance, Denies fatigue, Denies heat intolerance, Denies polydipsia and Denies polyuria Aller/Immun Denies wheezing Physical exam (Primary Care) Vital Signs: Last Vital Signs Temp 98.5 F 03/15/25 15:13 Pulse 85 03/15/25 15:13 Resp 16 03/15/25 15:13 BP 118/66 03/15/25 15:13 Pulse Ox 100 03/15/25 15:13 Oxygen Delivery Method Room Air 03/15/25 15:13 BMI result Body Mass Index 34.0 Tobacco/Smoking Status: Tobacco use Status Tobacco use date assessed 03/15/25 03/15/25 15:17 Patient Tobacco Use Status Never used Tobacco 03/15/25 15:11 e-Cigarette/Vaping Use Former Use 03/15/25 15:11 PHQ-9: PHQ-9 Score PHQ-9: Total score 10 03/15/25 15:35 Depression Screening Interpretation: Positive Depression Screening Follow-up: Existing condition and In treatment Thrive Assessment: Date of Thrive Assessment Date Thrive assessed 10/11/24 03/15/25 15:11 Currently or been in a relationship where the following occur: No concerns reported Const Other: General: no acute distress and well developed Nutritional Appearance: well nourished Orientation/consciousness: patient oriented x3 HENMT Head: Yes normocephalic and Yes atraumatic Eyes General: appearance normal, both eyes and all related structures Pupils: Equal, round and reactive pupils present EOM: EOMs intact bilaterally Resp Effort & Inspection: normal respiratory effort Auscultation: clear to auscultation bilaterally Cardio Rate: regular rate Rhythm: regular rhythm Heart sounds: S1 normal heart sound present, S2 normal heart sound present, no gallops, no murmurs and no rubs GI Palpation (GI): No Abdominal aortic bruit present, Soft to palpation, nontender, No hepatosplenomegaly present and No Rebound tenderness present Auscultation: normal bowel sounds General: Yes no CVA tenderness Back/Spine/Pelvis Back: no CVA tenderness Cervical Spine: cervical ROM normal and No Cervical spine tenderness Thoracic/Lumbar Spine: thoraco-lumbar ROM normal, No pain with thoraco-lumbar ROM, No thoracic spinal tenderness and No lumbar spinal tenderness Extrem General: Yes normal to inspection, No edema and No calf tenderness Skin General: warm and dry. Normal skin color. Normal skin turgor Neuro General: patient oriented x3, gait normal and no focal neuro deficit Cranial nerves: Yes Equal, round and reactive pupils present Cognition (Neuro): normal cognition Gait exam (Neuro): Normal gait present Sensory Exam: No Sensory deficit (Neuro) Psych Appearance: grossly normal Affect: normal affect Attitude: cooperative Thought process: Normal thought process present Coding Level of Care Code Est Pt Level 4 (29036) Diagnoses Anxiety F41.9 Depression F32.A Encounter for weight management Z76.89 Additional Codes LAURA-7 Assessment Billing - LAURA-7 Assessment Tool: LAURA-7 Assessment 29639 ([id number]) PHQ-9 - 79428 - PHQ-9 Billing: Yes ([id number]) Assessment & Plan Assessment & Plan (1) Anxiety: Code(s): F41.9 - Anxiety disorder, unspecified Category: Medical Plan: Reports well-controlled anxiety and depressive symptoms. PHQ-9 and LAURA-7 scores revealed moderate depression and mild anxiety respectively. Continue current treatment regimen. Routine exercise encouraged. Follow-up in 3 months or sooner with symptoms or concerns. Verbalized understanding and agreed with the treatment plan (2) Depression: Code(s): F32.A - Depression, unspecified Category: Medical Plan: Plan as above. (3) Encounter for weight management: Code(s): Z76.89 - Persons encountering health services in other specified circumstances Category: Medical Plan: 24-year-old female presents with requests for a referral for liposuction to her abdominal area and things. She is currently on Zepbound which her health plan does not cover; [id number] cost is significant. She does not want to do gastric bypass recommended by [facility] [place] [place] weight management. She requests referral to [facility], for liposuction. Referred as requested. Healthy diet and routine exercise encouraged. Continue follow-up with [facility] [place] [place] weight management clinic. Verbalized understanding and agreed with the plan. Orders: Referrals Plastic Surgery Referral Z76.89 - Persons encountering health services in other specified circumstances Patient Instructions: Advised to perform lipid panel and vitamin-D blood work before next visit. Fast for 10-12 hours before blood work.
[2025-03-15 15:13] VITALS: BP 118/66; PULSE 85; RESP 16; TEMP 36.9; O2SAT 100; BMI 34.0
--- OUTSIDE RECORDS SUMMARY | 2025-03-15 17:57 | XMS_ITS | Encounter Summary ---
Author Organization [facility] Address [address] [place] [address] Care Team Providers Care Table Games Dealer Name Role Phone Kenya Metz MD Primary Care Provider [phone] Kenya Metz MD Unavailable Linda Heard NP Primary Care Provider [phone] Lary Shepard APRN Unavailable Encounter Details Date Type Department Care Team (Late st Contact Info) Description 06/05/2021 Scanned Document [facility] [address] [place] [id number] Provider, Meka, [address] [place] [address] Social History Tobacco Use Types Packs/Day Years [...] on filedocumented in this encounter Care Teams Table Games Dealer Relationship Specialty Start Date End Date Kenya Metz MD [address] [facility] [address] [place] [address] PCP - General Internal Medicine 05/08/21 08/13/23 Kenya Metz MD [address] [facility] [address] [place] [address] PCP - [place] Commercial Attributed 07/06/22 07/05/23 Linda Heard NP [address] [place] [address] PCP - General Family Medicine 08/14/23 Lary Shepard APRN [address] [place] [address] PCP - [place] Commercial Attributed 07/06/23 10/05/23 documented as of this encounter
== END 2025-03-15 15:52 | disposition home or self-care (01) ==
LOC: HO.HMCFM 14:52
PROVIDERS: PCP Nurse Practitioner Family; Visit Provider Nurse Practitioner Family
DX: F41.9 Anxiety disorder, unspecified (principal); F32.A Depression, unspecified; Z76.89 Persons encountering health services in other specified circumstances

== ENCOUNTER → 2025-03-15 14:51 | Outpatient (BNVA) | payer OTHER, SELFPAY | PROVIDERS: PCP Nurse Practitioner Family; Visit Provider Nurse Practitioner Family | DX: F32.A Depression, unspecified (principal); F41.9 Anxiety disorder, unspecified; Z76.89 Persons encountering health services in other specified circumstances | CPT/HCPCS: 96127 ==

== ENCOUNTER 2025-06-29 13:03 | Outpatient (REF) | payer OTHER, SELFPAY ==
--- OUTSIDE RECORDS SUMMARY | 2025-06-29 15:29 | XMS_ITS | Encounter Summary ---
Author Organization [facility] Address [address] [place] [address] Care Team Providers Care Medical Laboratory Technician Name Role Phone Kenya Metz MD Primary Care Provider [phone] Kenya Metz MD Unavailable [phone] Linda Heard NP Primary Care Provider [phone] Lary Shepard APRN Unavailable Encounter Details Date Type Department Care Team (Late st Contact Info) Description 06/05/2021 Scanned Document [facility] [address] [place] [id number] Provider, Meka, [address] [place] [address] Social History Tobacco Use Types Packs/Day Years [...] on filedocumented in this encounter Care Teams Medical Laboratory Technician Relationship Specialty Start Date End Date Kenya Metz MD [address] [facility] [address] [place] [address] PCP - General Internal Medicine 05/08/21 08/13/23 Kenya Metz MD [address] [facility] [address] [place] [address] PCP - [place] Commercial Attributed 07/06/22 07/05/23 Linda Heard NP [address] [place] [address] PCP - General Family Medicine 08/14/23 Lary Shepard APRN [address] [place] [address] PCP - [place] Commercial Attributed 07/06/23 10/05/23 documented as of this encounter
--- OUTSIDE RECORDS SUMMARY | 2025-06-29 15:29 | XMS_ITS | Clinical Summary ---
Author Organization [facility] Address [address] [address] Phone Care Team Providers Care Reel Stripper Name Role Phone HeardLinda velásquez ALLIE Primary Care Provider Allergies No known active allergies Medications fluconazole (DIFLUCAN) 150 MG tablet Take 1 tablet PO QD x1d, then take 1 tablet PO QD in 72 hrs if symptoms persist 2 tablet 05/17/2023 Active Active Problems Problem Noted Date Diagnosed Date Anxiety and depression 05/08/2021 Overview (07/16/2022): Last Assessment & Plan: Mild to moderate anxiety and depressive symptoms [...] other more conservative measures have been established History of COVID-19 05/08/2021 Overview (07/16/2022): Last Assessment & Plan: Covid infection diagnosed December 06, symptoms November 30, runny nose, cough, tired Recovered quickly, mild dced quarantine december 13 Post nasal drip 1 week after that and progressing Feels like something stuck in throat Last week had sharp CP, not exertional, hard to breathe, left sided, lasted less than 1 minute Will check CXR and EKG Low HDL (under 40) 05/08/2021 Vitamin D deficiency 05/08/2021 Immunizations Immunization Administration Dates Next Due COVID-19 (Pre-07/28) Moderna Vaccine, mRNA, PF 09/22/2021,02/12/2021,12/13/2020 DTaP 03/02/2001, 0,1999,11/13 HPV,quadrivalent 05/20/2020,01/19/2019, 8 Hepatitis A, Adult 05/30/2015,04/20/2014 Hepatitis B Adult 11/20/2007,10/20/2007,09/16/20 04 Influenza Quadrivalent Prese rvative Free IM 07/18/2019 MMR 01/20/2013,11/08/2004 Measles 06/20/2000 Meningococcal B, recombinant (MenB-FHbp) 03/06/2021,05/20/2020 Meningococcal MCV4O 05/28/2018,04/20/2014 Mumps 06/20/2000 PPD Test 07/16/2022 Pneumococcal conjugate, PCV 7 01/20/2013 Polio, Unspecified Formulation 5,12/25/2001,02/27/2001,02/26,1999,1999 Td (adult),2 Lf Tetanus Toxo id, PF, Adsorbed 01/27/2005 Tdap 02/10/2013 Varicella 01/20/2013,10/06/2008 Social History Tobacco Use Types Packs/Day Years Used Date Smoking Tobacco: Never Smokeless Tobacco: Never Tobacco Cessation:Counseling Given: Not Answered Education Answer Date Recorded Are you interested in more education? Not on moises e 02/01/2023 Are you concerned about learning? Not on file 02/01/2023 No 02/01/2023 No 02/01/2023 Digital Access Answer Date Recorded No 03/01/2023 No 03/01/2023 Reliable internet access at home? Not on file 03/01/2023 Device with a working camera? Not on file Comments Unknown Sex and Gender Information Value Date Recorded Sex Assigned at Not on file Legal Sex Female 9:56 AM EDT Gender Identity Not on file Sexual Orientation Not on file Last Filed Vital Signs Vital Sign Reading Time Taken Comments Blood Pressure 105/77 05/17/2023 11:49 AM EDT Pulse 91 05/17/2023 11:49 AM EDT Temperature 36.4 C (97.6 F) 05/17/2023 11:49 AM EDT Respiratory Rate 18 05/17/2023 11:49 AM EDT Oxygen Saturation 96% 05/17/2023 11:49 AM EDT Inhaled Oxygen Concentration - - Weight 90.7 kg (200 lb) 05/17/2023 11:49 AM EDT Height 167.6 cm (5' 6 ) 05/17/2023 11:49 AM EDT Body Mass Index 32.28 05/17/2023 11:49 AM EDT Plan of Treatment Health Maintenance Due Date Last Done Comments DEPRESSION SCREENING 2011 HIV ONE-TIME SCREENING (18-6 5 YEARS) 2017 PAP SMEAR 2020 Adult Td,Tdap Booster 02/10/2023 02/10/2013 , 01/27/2005 INFLUENZA VACCINE (#1) 2025 07/18/2019 COVID-19 VACCINE ( - 2024-2 6 season) 2025 09/22/2021, 02/12/2021, 12/13/2020 SMOKING STATUS SCREENING (On ce After 26 Yrs) 2025 PNEUMOCOCCAL VACCINES (0-49 years) Aged Out 01/20/2013 No longer eligible b ased on patient's age to complete this topic HEPATITIS A VACCINES Completed 05/30/2015, 04/20/2014 MENINGOCOCCAL VACCINES (ACWY) Completed , 04/20/2014 HPV VACCINES Completed 05/20/2020, 01/19/2019, 05/28/2018 MENINGOCOCCAL VACCINES (B) Completed 03/06, 05/20/2020 HEPATITIS C SCREENING Completed 05/08/2021 HIB VACCINES Aged Out No longer eligi ble based on patient's age to complete this topic Medical Devices Not on file Insurance [address] [place], [place] [address] [place] [address] [place], [place] [address]O [facility] [place] [address] [place] [address] HMO Care Teams Reel Stripper Relationship Specialty Start Date End Date Linda Heard NP PCP - General Nurse Practitioner 05/17/23 Additional Source Comments The information contained in this document represents components of the legal health record. It is not the complete legal health record.[facility]
--- OUTSIDE RECORDS SUMMARY | 2025-06-29 15:29 | XMS_ITS | Clinical Summary ---
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 on file Not on file Not on file Last Filed Vital Signs Vital Sign Reading Time Taken Comments Blood Pressure 122/88 08/23/2023 12:51 PM EST Pulse 117 08/23/2023 12:51 PM EST Temperature 36.9 C (98.4 F) 08/23/2023 12:51 PM EST Respiratory Rate 18 08/23/2023 12:51 PM EST [...] 02/10/2023 02/10/2013, 01/27/2005, 01/27/2005, Additional history exists Pap Smear (Ages 21-65) 05/08/2024 05/08/2021 Influenza Vaccine 05/06/2025 06/08/2022, , 07/18/2019 COVID-19 Vaccine ( season) 2025 09/22/2021, 02/12/2021, 02/12/2021, Additional history exists Pneumococcal [...] EDT Health care maintenance THINPREP PAP TEST (LITHOGRAPHIC PLATE MAKER APPRENTICE) WITH HPV SCREEN Routine 05/08/2021 12:00 AM EDT Yeast infection Vaginal discharge from Last 3 Months or Most Recently Relevant to Health Maintenance Results * HIV 1/2 Ag/Ab CMIA Reflex to Confirmation (05/08/2021 12:38 PM EDT) HIV Ag/Ab, 4th Gen NON-REACT LANDON NON-REACT LANDON [facility] Comment: HIV-1 antigen and HIV-1/HIV-2 antibodies were not detected. There is no laboratory evidence of HIV infection. PLEASE NOTE: This information has been disclosed to you from records whose confidentiality may be protected by state law. If your state requires such protection, then the state law prohibits you from making any further disclosure of the information without the specific written consent of the person to whom it pertains, or as otherwise permitted by law. A general authorization for the release of medical or other information is NOT sufficient for this purpose. For additional information please refer to http://education.Hellot[employer]/faq/UYP489 (This link is being provided for informational/ educational purposes only.) The performance of this assay has not been clinically validated in patients less than 2 years old. Blood specimen (specimen) Blood specimen / Unknown 05/08/2021 12:38 PM EDT 05/08/2021 12:40 PM EDT Narrative [facility] - 05/09/2021 4:11 AM EDT FASTING:YES FASTING: YES us Kenya Metz MD LAB BLOOD ORDERABLES Final Result [facility] [address] [place] [address], [place] [address] * Hepatitis C Virus (HCV) Antibody (05/08/2021 12:38 PM EDT) Hepatitis C Antibody NON-REACT LANDON NON-REACT LANDON [facility] Hepatitis C Antibody (s/co) 0.01 <1.00 [facility] Comment: HCV antibody was non-reactive. There is no laboratory evidence of HCV infection. In most cases, no further action is required. However, if recent HCV exposure is suspected, a test for HCV RNA (test code 74962) is suggested. For additional information please refer to http://education.ChoiceStream/faq/MXA86v9 (This link is being provided for informational/ educational purposes only.) Blood specimen (specimen) Blood specimen / Unknown 05/08/2021 12:38 PM EDT 05/08/2021 12:40 PM EDT Narrative [facility] - 05/09/2021 4:11 AM EDT FASTING:YES FASTING: YES us Kenya Metz MD LAB BLOOD ORDERABLES Final Result [facility] [address] [place] [address], [place] [address] * ThinPrep Pap Test (Water Hauler) with HPV Screen (05/08/2021 12:00 AM EDT) Clinical Information None given [facility] LMP: 04/12/21 [facility] Previous PAP: NONE GIVEN [facility] Previous Biopsy NONE GIVEN Chug Source: Endocervix [facility] Statement of Adequacy: [facility] Comment: Satisfactory for evaluation. Endocervical/transformation zone component present. Interpretation/Re sult: Negative for intraepithelial lesion or malignancy. [facility] Comment: This Pap test has been evaluated with computer assisted technology. [facility] Caseworker Intake: [facility] Comment: ADELA KUMAR(ASCP) CT screening location: [place] [address] Comment [facility] Comment: EXPLANATORY NOTE: The Pap is a [...] Hpv Mrna E6E7 Not Detected Not Detected [facility] Comment: Methodology: Magnetic Resonance Imaging Director-Mediated Amplification This assay detects E6/E7 viral messenger RNA (mRNA) from 14 high-risk HPV types (16,18,31,33,35,39,45,51,52,56,58,59,66,68). The analytical performance characteristics of this assay have been determined by [employer]. The modifications have not been cleared or approved by the FDA. This assay has been validated pursuant to the CLIA regulations and is used for clinical purposes. For additional information, please refer to http://education.ChoiceStream/faq/RKN429p0 (This link if provided for information/ educational purposes only.) 05/08/2021 05/09/2021 11: 31 AM EDT Narrative [facility] - 05/10/2021 2:43 AM EDT FASTING: UNKNOWN us Kenya Metz MD LAB AMB PATH/CYTO ORDERABLE S Final Result [facility] [address] [place] [address], [place] [address] from Last 3 Months or Most Recently Relevant to Health Maintenance Insurance [facility] Care Teams Egg Breaking Machine Operator Relationship Specialty Start Date End Date Linda Heard NP [address] [place] [address] PCP - General Family Medicine 08/14/23
[2025-06-29 16:57] LABS: Cholesterol 195 mg/dL (<200); HDL Cholesterol 37 mg/dL (>40); Triglycerides 74 mg/dL (<150)
== END 2025-06-29 13:04 | disposition home or self-care (01) ==
LOC: HO.HMGCLDS 13:03
PROVIDERS: PCP Nurse Practitioner Family; Visit Provider Nurse Practitioner Family
DX: E78.5 Hyperlipidemia, unspecified (principal); E55.9 Vitamin D deficiency, unspecified
CPT/HCPCS: 36415; 80061; 82306

== ENCOUNTER 2025-07-05 13:09 | Outpatient (AMB) | payer OTHER, SELFPAY ==
--- NOTE | 2025-07-05 13:12 | MHC.PC.OV ---
Vital Signs 07/05/25 13:20 Height 5 ft 7 in Weight 226 lb BMI 35.4 BP 116/67 Blood Pressure Location Lt brachial Position Sitting Respiration 16 Pulse 87 Pulse Source Pulse Oximeter Temp 97.9 F Temp Source Oral Pulse Oximetry (%) 97 Oxygen Delivery Method Room Air Intake Visit Reasons: 3 mos anxiety, depression, labs review Intake Note: patient here for 3 month follow up on anxiety, depression, and lab review. she stated that she is no longer on weight management program. Bench Mechanic Required: No Is last menstrual period known: Yes Last menstrual period: 07/05/25 Post menopausal: No Patient : No Allergies No Known Allergies Allergy (Verified 07/05/25 13:15) Tobacco use date assessed: 07/05/25 Dental Screening Dental Screen Date: 07/05/25 Did you have a dental visit in the last 12 months?: Yes Did you have a dental problem in the last 6 months where you did not have access to dental care?: No Was dental information given to patient?: Patient has dentist HPI HPI Comments History of Present Illness Details 25-year-old female presents for dyslipidemia, anxiety, and depression follow-up. She admits to taking her medications as prescribed without adverse reactions. She notes that her anxiety and depressive symptoms fluctuates; she has good and bad days. She is stressed about weight loss medication. She requests wegovy for weight management. She notes wegovy is covered by her health plan. No acute symptoms at this time. [facility] Medical History (Updated 03/09/25 @ 20:49 by Albin Valdovinos MD) Insomnia No pertinent family history High cholesterol Depression Anxiety Surgical History No pertinent past surgical history Social History Housing: Apartment Patient Tobacco Use Status: Never used Tobacco e-Cigarette/Vaping Use: Former Use Second Hand Smoke Exposure: No service: No Current occupational status: employed Current occupation: [employer] Current occupational exposures/hazards: No Cognitive needs: No Hearing needs: No Vision needs: Yes Female Reproductive History Menstrual Date of last menstrual period: 07/05/25 Questionnaire PHQ-9 Over the last 2 weeks, how often have you been bothered by any of the following problems? 1. Little interest or pleasure in doing things: nearly every day 2. Feeling down, depressed, or hopeless: more than half the days 3. Trouble falling or staying asleep, or sleeping too much: nearly every day 4. Feeling tired or having little energy: nearly every day 5. Poor appetite or overeating: more than half the days 6. Feeling bad about yourself - or that you are a failure or have let yourself or your family down: not at all 7. Trouble concentrating on things, such as reading the newspaper or watching television: several days 8. Moving or speaking so slowly that other people could have noticed. Or the opposite - being so fidgety or restless that you have been moving around a lot more than usual: not at all 9. Thoughts that you would be better off or of hurting yourself in some way: not at all Total score: 14 Depression Screening Interpretation: Positive Depression Screening Follow-up: Existing condition and In treatment Depression Screening Done: Yes 66605 - PHQ-9 Billing: Yes Source: Developed by Drs. Clay Avilez, Edilma Dunbar, Jose Carlos Diop and colleagues, with an educational kimberly from [employer]. Thrive Questionnaire Date Thrive assessed: 10/11/24 I am a: Patient What is your living situation today?: I have a steady place to live Within the past 12 months, did the food you bought not last and you didn't have the money to get more?: Sometimes True Within the past 12 months, did you worry whether your food would run out before you got money to buy more?: Sometimes True Do you have trouble paying for medicines?: No Do you have trouble getting transportation to medical appointments?: No Do you have trouble paying your heating and electricity bill?: No Do you have trouble taking care of your child, family member or friend?: No Do you have trouble with day-to-day activities such as bathing, preparing meals, shopping, managing finances, etc.?: No Are you currently unemployed and looking for a job?: No Are you interested in more education?: Yes Currently or been in a relationship where the following occur: No concerns reported THRIVE Score: 2 LAURA-7 AMB Questionnaire LAURA-7 Date LAURA - 7 assessed: 07/05/25 Feeling nervous, anxious, or on edge: 0 = Not at all Not being able to stop or control worryin = Several days Worrying too much about different things: 2 = More than half the days Trouble relaxin = More than half the days Being so restless that it is hard to sit still: 1 = Several days Becoming easily annoyed or irritable: 2 = More than half the days Feeling afraid as if something awful might happen: 0 = Not at all Total LAURA-7 score (0-4 normal; 5-9 mild; 10-14 moderate; 15-21 severe): 8 Source: Developed by Drs. Clay Avilez, Edilma Dunbar, Jose Carlos Diop and colleagues, with an educational kimberly from [employer]. LAURA-7 Assessment Billing LAURA-7 Assessment Tool: LAURA-7 Assessment 17298 Review of Systems Const Details: Const Denies chills, Denies fatigue, Denies fever(s), Denies headache(s) and Denies weakness ENT Denies dizziness and Denies headache(s) Card Denies chest pain, Denies lightheadedness, Denies dyspnea and Denies other (Palpitations) Resp Denies cough, Denies dyspnea, Denies wheezing and Denies other ( shortness of breath) GI Denies abdominal pain, Denies melena, Denies hematochezia, Denies change in bowel habits, Denies dyspepsia and Denies nausea Denies hematuria and Denies dysuria Musc Denies abnormal gait, Denies myalgias, Denies arthralgias, Denies numbness and Denies tingling Skin/Breast Denies rash, Denies unusual bruising and Denies wounds Neuro Denies abnormal gait, Denies dizziness, Denies headache(s), Denies memory loss, Denies numbness, Denies Sensory deficit (Neuro), Denies tingling and Denies weakness Psych Reports anxiety, Reports depression, Denies memory loss Endo Denies cold intolerance, Denies fatigue, Denies heat intolerance, Denies polydipsia and Denies polyuria Aller/Immun Denies wheezing Physical exam (Primary Care) Vital Signs: Last Vital Signs Temp 97.9 F 07/05/25 13:20 Pulse 87 07/05/25 13:20 Resp 16 07/05/25 13:20 BP 116/67 07/05/25 13:20 Pulse Ox 97 07/05/25 13:20 Oxygen Delivery Method Room Air 07/05/25 13:20 BMI result Body Mass Index 35.4 Tobacco/Smoking Status: Tobacco use Status Tobacco use date assessed 07/05/25 07/05/25 13:23 Patient Tobacco Use Status Never used Tobacco 07/05/25 13:14 e-Cigarette/Vaping Use Former Use 07/05/25 13:14 PHQ-9: PHQ-9 Score PHQ-9: Total score 14 07/05/25 13:23 Depression Screening Interpretation: Positive Depression Screening Follow-up: Existing condition and In treatment Thrive Assessment: Date of Thrive Assessment Date Thrive assessed 10/11/24 07/05/25 13:14 Currently or been in a relationship where the following occur: No concerns reported Const Other: General: no acute distress and well developed Nutritional Appearance: well nourished Orientation/consciousness: patient oriented x3 HENMT Head: Yes normocephalic and Yes atraumatic Eyes General: appearance normal, both eyes and all related structures Pupils: Equal, round and reactive pupils present EOM: EOMs intact bilaterally Resp Effort & Inspection: normal respiratory effort Auscultation: clear to auscultation bilaterally Cardio Rate: regular rate Rhythm: regular rhythm Heart sounds: S1 normal heart sound present, S2 normal heart sound present, no gallops, no murmurs and no rubs GI Palpation (GI): No Abdominal aortic bruit present, Soft to palpation, nontender, No hepatosplenomegaly present and No Rebound tenderness present Auscultation: normal bowel sounds General: Yes no CVA tenderness Back/Spine/Pelvis Back: no CVA tenderness Cervical Spine: cervical ROM normal and No Cervical spine tenderness Thoracic/Lumbar Spine: thoraco-lumbar ROM normal, No pain with thoraco-lumbar ROM, No thoracic spinal tenderness and No lumbar spinal tenderness Extrem General: Yes normal to inspection, No edema and No calf tenderness Skin General: warm and dry. Normal skin color. Normal skin turgor Neuro General: patient oriented x3, gait normal and no focal neuro deficit Cranial nerves: Yes Equal, round and reactive pupils present Cognition (Neuro): normal cognition Gait exam (Neuro): Normal gait present Sensory Exam: No Sensory deficit (Neuro) Psych Appearance: grossly normal Affect: normal affect Attitude: cooperative Thought process: Normal thought process present Coding Level of Care Code Est Pt Level 4 (68142) Diagnoses Dyslipidemia E78.5 Anxiety F41.9 Depression F32.A Obesity (BMI 30-39.9) E66.9 Additional Codes LAURA-7 Assessment Billing - LAURA-7 Assessment Tool: LAURA-7 Assessment 46707 ([id number]) PHQ-9 - 19374 - PHQ-9 Billing: Yes ([id number]) Assessment & Plan Assessment & Plan (1) Dyslipidemia: Code(s): E78.5 - Hyperlipidemia, unspecified Category: Medical Plan: Recent LDL level is elevated, 144, previous level was 122, HDL level is low, 37, previous level was 40, triglycerides level is normal. Advised to limit foods high in saturated fat and avoid foods high in trans fat. Routine exercise/weight management encouraged. Will recheck lipid panel level in 3 months. Verbalized understanding and agreed with plan. (2) Anxiety: Code(s): F41.9 - Anxiety disorder, unspecified Category: Medical Plan: She notes that her anxiety and depressive symptoms fluctuates; she has good and bad days. She is stressed about weight loss medication. She requests wegovy for weight management. She notes wegovy is covered by her health plan. PHQ-9 and LAURA-7 scores revealed moderate depression and mild anxiety respectively. Bupropion increased to 300 mg daily in the morning; advised to take as prescribed. Instructed on the risks, benefits, and potential adverse reactions of the medication. Continue to take trazodone as prescribed. Routine exercise encouraged. Follow-up in 1 month or sooner with symptoms or concerns. Verbalized understanding and agreed with the plan. (3) Depression: Code(s): F32.A - Depression, unspecified Category: Medical Plan: Plan as above. (4) Obesity (BMI 30-39.9): Code(s): E66.9 - Obesity, unspecified Category: Medical Plan: She currently weighs 226 lb, BMI is 35.4. Wegovy 0.25 mg weekly ordered; advised to take as prescribed. Instructed on the risks, benefits, and potential adverse reactions of the medication. Follow-up in 1 month or sooner with symptoms or concerns. Verbalized understanding and agreed with the plan. Medications: New semaglutide (weight loss) (Wegovy) administer weeks 1 through 4 of therapy 0.25 mg (0.5 mL) subcut QWEEK 2 mL 0RF bupropion HCl XL 300 mg PO QAM 30 tabs 3RF 30 days Refilled cholecalciferol (vitamin D3) 50 mcg PO DAILY 90 tabs 3RF 90 days
[2025-07-05 13:20] VITALS: BP 116/67; PULSE 87; RESP 16; TEMP 36.6; O2SAT 97; BMI 35.4
--- OUTSIDE RECORDS SUMMARY | 2025-07-05 14:22 | XMS_ITS | Encounter Summary ---
Author Organization [facility] Address [address] [place] [address] Care Team Providers Care Auditor Supervisor Name Role Phone Kenya Metz MD Primary Care Provider [phone] Kenya Metz MD Unavailable [phone] Linda Heard NP Primary Care Provider [phone] Lary Shepard APRN Unavailable Encounter Details Date Type Department Care Team (Late st Contact Info) Description 06/05/2021 Scanned Document [facility] [address] [place] [id number] Provider, Meka, [address] [place] [address] Social History Tobacco Use Types Packs/Day Years [...] on filedocumented in this encounter Care Teams Auditor Supervisor Relationship Specialty Start Date End Date Kenya Metz MD [address] [facility] [address] [place] [address] PCP - General Internal Medicine 05/08/21 08/13/23 Kenya Metz MD [address] [facility] [address] [place] [address] PCP - [employer] Attributed 07/06/22 07/05/23 Linda Heard NP [address] [place] [address] PCP - General Family Medicine 08/14/23 Lary Shepard APRN [address] [place] [address] PCP - [employer] Attributed 07/06/23 10/05/23 documented as of this encounter
--- OUTSIDE RECORDS SUMMARY | 2025-07-05 14:22 | XMS_ITS | Clinical Summary ---
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 For additional information please refer to http://education.Interact.io.Dajiabao/faq/ZTE599 (This link is being provided for informational/ educational purposes only.) The performance of this assay has not been clinically validated in patients less than 2 years old. Blood specimen (specimen) Blood specimen / Unknown 05/08/2021 12:38 PM EDT 05/08/2021 12:40 PM EDT Narrative [facility] - 05/09/2021 4:11 AM EDT FASTING:YES FASTING: YES us Kenya Metz MD LAB BLOOD ORDERABLES Final Result [facility] [address] [place] [address], [place] [address] * Hepatitis C Virus (HCV) Antibody (05/08/2021 12:38 PM EDT) Hepatitis C Antibody NON-REACT LANDON NON-REACT LANDON [facility] Hepatitis C Antibody (s/co) 0.01 <1.00 [facility] Comment: HCV antibody was non-reactive. There is no laboratory evidence of HCV infection. In most cases, no further action is required. However, if recent HCV exposure is suspected, a test for HCV RNA (test code 73211) is suggested. For additional information please refer to http://education.ITao/faq/VSQ90n7 (This link is being provided for informational/ educational purposes only.) Blood specimen (specimen) Blood specimen / Unknown 05/08/2021 12:38 PM EDT 05/08/2021 12:40 PM EDT Narrative [facility] - 05/09/2021 4:11 AM EDT FASTING:YES FASTING: YES us Kenya Mtez MD LAB BLOOD ORDERABLES Final Result [facility] [address] [place] [address], [place] [address] * ThinPrep Pap Test (Carpet Cutter) with HPV Screen (05/08/2021 12:00 AM EDT) Clinical Information None given [facility] LMP: 04/12/21 [facility] Previous PAP: NONE GIVEN [facility] Previous Biopsy NONE GIVEN [facility] Source: [facility] Statement of Adequacy: [facility] Comment: Satisfactory for evaluation. Endocervical/transformation zone component present. Interpretation/Re sult: Negative for intraepithelial lesion or malignancy. [facility] Comment: This Pap test has been evaluated with computer assisted technology. [facility] Financial Services Associate: [employer] Comment: ADELA KUMAR(ASCP) CT screening location: [place] [address] Comment [facility] Comment: EXPLANATORY NOTE: The Pap is a [...] Hpv Mrna E6E7 Not Detected Not Detected [facility] Comment: Methodology: Air Plant Engineer-Mediated Amplification This assay detects E6/E7 viral messenger RNA (mRNA) from 14 high-risk HPV types (16,18,31,33,35,39,45,51,52,56,58,59,66,68). The analytical performance characteristics of this assay have been determined by [facility]. The modifications have not been cleared or approved by the FDA. This assay has been validated pursuant to the CLIA regulations and is used for clinical purposes. For additional information, please refer to http://education.ITao/faq/BJA279m7 (This link if provided for information/ educational purposes only.) 05/08/2021 05/09/2021 11: 31 AM EDT Narrative [facility] - 05/10/2021 2:43 AM EDT FASTING: UNKNOWN us Kenya Metz MD LAB AMB PATH/CYTO ORDERABLE S Final Result [facility] [facility] [address] [place] [address], [place] [address] from Last 3 Months or Most Recently Relevant to Health Maintenance Insurance [facility] HMO [facility] [employer] [facility] Care Teams Commonwealth Attorney Relationship Specialty Start Date End Date Linda Heard NP [address] [place] [address] PCP - General Family Medicine 08/14/23
--- OUTSIDE RECORDS SUMMARY | 2025-07-05 14:23 | XMS_ITS | Clinical Summary ---
Author Organization [facility] Address [address] [address] Phone Care Team Providers Care Outside Production Inspector Name Role Phone HeardLinda velásquez ALLIE Primary [...] Not on file Insurance [address] [place], [place] [address] [place], [place] [address] [place] [address]O [facility] [place] [address] [place] [address] HMO Care Teams Outside Production Inspector Relationship Specialty Start Date End Date Linda Heard NP PCP - General Nurse Practitioner 05/17/23 Additional Source Comments The information contained in this document represents components of the legal health record. It is not the complete legal health record.[facility]
== END 2025-07-05 13:54 | disposition home or self-care (01) ==
LOC: HO.HMCFM 13:09
PROVIDERS: PCP Nurse Practitioner Family; Visit Provider Nurse Practitioner Family
DX: E78.5 Hyperlipidemia, unspecified (principal); F41.9 Anxiety disorder, unspecified; Z68.35 Body mass index [BMI] 35.0-35.9, adult; E66.9 Obesity, unspecified; F32.A Depression, unspecified

== ENCOUNTER → 2025-07-05 13:09 | Outpatient (BNVA) | payer OTHER, SELFPAY | PROVIDERS: PCP Nurse Practitioner Family; Visit Provider Nurse Practitioner Family | DX: F32.A Depression, unspecified (principal); F41.9 Anxiety disorder, unspecified; E78.5 Hyperlipidemia, unspecified; E66.9 Obesity, unspecified; Z68.35 Body mass index [BMI] 35.0-35.9, adult | CPT/HCPCS: 96127 ==

== ENCOUNTER 2025-08-08 12:56 | Outpatient (AMB) | payer OTHER, SELFPAY ==
--- NOTE | 2025-08-08 13:00 | A.OFFPC_ITS ---
Vital Signs 08/08/25 13:08 Height 5 ft 7 in Weight 235 lb 6 oz BMI 36.9 BP 132/64 Blood Pressure Location Rt brachial Position Sitting Respiration 16 Pulse 88 Pulse Source Pulse Oximeter Temp 97.1 F Temp Source Oral Pulse Oximetry (%) 96 Oxygen Delivery Method Room Air Intake Visit Reasons: 1 mos anxiety, depression, weight mgmt Intake Note: patient here for 1 month follow up on anxiety, depression and weight mgmt Hand Picker Required: No Is last menstrual period known: Yes Last menstrual period: 06/22/25 Post menopausal: No Patient : No Allergies No Known Allergies Allergy (Verified 08/08/25 13:28) Medication List - Last Reconciled 08/08/25 by Pop Faria CNP bupropion HCl XL 300 mg PO QAM 30 days cholecalciferol (vitamin D3) 50 mcg PO DAILY 90 days semaglutide (weight loss) (Wegovy) 0.25 mg (0.5 mL) subcut QWEEK trazodone 25 mg (1/2 x 50 mg) PO BEDTIME 90 days Tobacco use date assessed: 08/08/25 Dental Screening Dental Screen Date: 08/08/25 Did you have a dental visit in the last 12 months?: Yes Did you have a dental problem in the last 6 months where you did not have access to dental care?: No Was dental information given to patient?: Patient has dentist HPI HPI Comments History of Present Illness Details 25-year-old female presents for anxiety, depression, and weight management follow-up. She states that she has been taking her medications as prescribed without adverse reactions. She notes that her mood is okay. Wellbutin is effective in controlling her mood. Sleep is is inadequate - she sleeps 6 hours after taking trazadone. Her health plan did not approve Wegovy that was prescribed for weight management at her last visit. She admits to making healthy dietary choices. She is active but does not exercise. She gained 9 lb since her last visit. She was followed by [facility] weight management [facility]. She requests a referral to a different weight management clinic. 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 1. Little interest or pleasure in doing things: more than half the days 2. Feeling down, depressed, or hopeless: several days 3. Trouble falling or staying asleep, or sleeping too much: nearly every day 4. Feeling tired or having little energy: nearly every day 5. Poor appetite or overeating: several days 6. Feeling bad about yourself - or that you are a failure or have let yourself or your family down: several days 7. Trouble concentrating on things, such as reading the newspaper or watching television: several days 8. Moving or speaking so slowly that other people could have noticed. Or the opposite - being so fidgety or restless that you have been moving around a lot more than usual: not at all 9. Thoughts that you would be better off or of hurting yourself in some way: not at all Total score: 12 Depression Screening Interpretation: Positive Depression Screening Follow-up: Existing condition and In treatment Depression Screening Done: Yes Source: Developed by Drs. Clay Avilez, Edilma Dunbar, Jose Carlos Diop and colleagues, with an educational kimberly from doggyloot. Thrive Questionnaire Date Thrive assessed: 10/11/24 I am a: Patient What is your living situation today?: I have a steady place to live Within the past 12 months, did the food you bought not last and you didn't have the money to get more?: Sometimes True Within the past 12 months, did you worry whether your food would run out before you got money to buy more?: Sometimes True Do you have trouble paying for medicines?: No Do you have trouble getting transportation to medical appointments?: No Do you have trouble paying your heating and electricity bill?: No Do you have trouble taking care of your child, family member or friend?: No Do you have trouble with day-to-day activities such as bathing, preparing meals, shopping, managing finances, etc.?: No Are you currently unemployed and looking for a job?: No Are you interested in more education?: Yes Currently or been in a relationship where the following occur: No concerns reported THRIVE Score: 2 LAURA-7 AMB Questionnaire LAURA-7 Date LAURA - 7 assessed: 08/08/25 Feeling nervous, anxious, or on edge: 0 = Not at all Not being able to stop or control worryin = Not at all Worrying too much about different things: 0 = Not at all Trouble relaxin = Several days Being so restless that it is hard to sit still: 0 = Not at all Becoming easily annoyed or irritable: 0 = Not at all Feeling afraid as if something awful might happen: 0 = Not at all Total LAURA-7 score (0-4 normal; 5-9 mild; 10-14 moderate; 15-21 severe): 1 Source: Developed by Drs. Clay Avilez, Edilma Dunbar, Jose Carlos Diop and colleagues, with an educational kimberly from doggyloot. LAURA-7 Assessment Billing LAURA-7 Assessment Tool: LAURA-7 Assessment 23881 Review of Systems Const Details: Const Denies chills, Denies fatigue, Denies fever(s), Denies headache(s) and Denies weakness ENT Denies dizziness and Denies headache(s) Card Denies chest pain, Denies lightheadedness, Denies dyspnea and Denies other (Palpitations) Resp Denies cough, Denies dyspnea, Denies wheezing and Denies other ( shortness of breath) GI Denies abdominal pain, Denies melena, Denies hematochezia, Denies change in bowel habits, Denies dyspepsia and Denies nausea Denies hematuria and Denies dysuria Musc Denies abnormal gait, Denies myalgias, Denies arthralgias, Denies numbness and Denies tingling Skin/Breast Denies rash, Denies unusual bruising and Denies wounds Neuro Denies abnormal gait, Denies dizziness, Denies headache(s), Denies memory loss, Denies numbness, Denies Sensory deficit (Neuro), Denies tingling and Denies weakness Psych Denies anxiety, Denies depression, Denies memory loss Endo Denies cold intolerance, Denies fatigue, Denies heat intolerance, Denies polydipsia and Denies polyuria Aller/Immun Denies wheezing Physical exam (Primary Care) Tobacco/Smoking Status: Tobacco use Status Tobacco use date assessed 07/05/25 08/08/25 13:01 Patient Tobacco Use Status Never used Tobacco 08/08/25 13:01 e-Cigarette/Vaping Use Former Use 08/08/25 13:01 Depression Screening Interpretation: Positive Depression Screening Follow-up: Existing condition and In treatment Thrive Assessment: Date of Thrive Assessment Date Thrive assessed 10/11/24 08/08/25 13:01 Currently or been in a relationship where the following occur: No concerns reported Const Other: General: no acute distress and well developed Nutritional Appearance: well nourished Orientation/consciousness: patient oriented x3 HENMT Head: Yes normocephalic and Yes atraumatic Eyes General: appearance normal, both eyes and all related structures Pupils: Equal, round and reactive pupils present EOM: EOMs intact bilaterally Resp Effort & Inspection: normal respiratory effort Auscultation: clear to auscultation bilaterally Cardio Rate: regular rate Rhythm: regular rhythm Heart sounds: S1 normal heart sound present, S2 normal heart sound present, no gallops, no murmurs and no rubs GI Palpation (GI): No Abdominal aortic bruit present, Soft to palpation, nontender, No hepatosplenomegaly present and No Rebound tenderness present Auscultation: normal bowel sounds General: Yes no CVA tenderness Back/Spine/Pelvis Back: no CVA tenderness Cervical Spine: cervical ROM normal and No Cervical spine tenderness Thoracic/Lumbar Spine: thoraco-lumbar ROM normal, No pain with thoraco-lumbar ROM, No thoracic spinal tenderness and No lumbar spinal tenderness Extrem General: Yes normal to inspection, No edema and No calf tenderness Skin General: warm and dry. Normal skin color. Normal skin turgor Neuro General: patient oriented x3, gait normal and no focal neuro deficit Cranial nerves: Yes Equal, round and reactive pupils present Cognition (Neuro): normal cognition Gait exam (Neuro): Normal gait present Sensory Exam: No Sensory deficit (Neuro) Psych Appearance: grossly normal Affect: normal affect Attitude: cooperative Thought process: Normal thought process present Coding Level of Care Code Est Pt Level 4 (51200) Diagnoses Anxiety F41.9 Depression F32.A Sleep disturbance G47.9 Obesity (BMI 30-39.9) E66.9 Laboratory tests ordered as part of a complete physical exam (CPE) Z00.00 Additional Codes LAURA-7 Assessment Billing - LAURA-7 Assessment Tool: LAURA-7 Assessment 57714 ([id number]) Assessment & Plan Assessment & Plan (1) Anxiety: Code(s): F41.9 - Anxiety disorder, unspecified Category: Medical Plan: Reports controlled mood. Sleep i is inadequate. PHQ-9 score revealed moderate depression. LAURA-7 score is normal. Continue current treatment regimen. Continue to take Wellbutrin 300 mg daily. Trazodone increased to 50 mg as needed at bedtime for sleep. Routine exercise encouraged. Perform fasting lab work and follow-up in 2-3 weeks for an extended physical exam and labs review. Return sooner with symptoms or concerns. Verbalized understanding and agreed with the plan. (2) Depression: Code(s): F32.A - Depression, unspecified Category: Medical Plan: Plan as above. (3) Sleep disturbance: Code(s): G47.9 - Sleep disorder, unspecified Category: Medical Plan: Plan as above. (4) Obesity (BMI 30-39.9): Code(s): E66.9 - Obesity, unspecified Category: Medical Plan: She gained 9 lb since her last visit. She currently weighs 235 lb, BMI is 36.9. Her health plan did not approve Wegovy that was prescribed for weight management at her last visit. Healthy diet and routine exercise encouraged. Referred to [facility] weight management clinic. Follow-up as needed. Verbalized understanding and agreed with the plan. (5) Laboratory tests ordered as part of a complete physical exam (CPE): Code(s): Z00.00 - Encounter for general adult medical examination without abnormal findings Category: Medical Plan: Fasting labs ordered as part of a complete physical exam. Advised to fast for at least 10 hours before getting labs drawn. May drink water Verbalized understanding and agreed with treatment plan. Orders: Orders Comprehensive [place]. Panel Fast Today Z00.00 - Encounter for general adult medical examination without abnormal findings TSH reflex Free T4 Today Z00.00 - Encounter for general adult medical examination without abnormal findings Complete Blood Count Auto Diff Today Z00.00 - Encounter for general adult medical examination without abnormal findings Microalbumin, Random (w Creat) Today Z00.00 - Encounter for general adult medical examination without abnormal findings UA CC w/rflx Micro + Cult Today Z00.00 - Encounter for general adult medical examination without abnormal findings Vitamin D 25-OH Total Today Z00.00 - Encounter for general adult medical examination without abnormal findings Referrals Medical Weight Management Referral E66.9 - Obesity, unspecified Medications: New trazodone 50 mg PO BEDTIME PRN 90 tabs 1RF sleep Discontinued semaglutide (weight loss) (Yemi) administer weeks 1 through 4 of therapy Discontinued Reason: Insurance Denied 0.25 mg (0.5 mL) subcut QWEEK 2 mL 0RF trazodone Discontinued Reason: Doctor's Order 25 mg (1/2 x 50 mg) PO BEDTIME 90 days 45 tabs 1RF
[2025-08-08 13:08] VITALS: BP 132/64; PULSE 88; RESP 16; TEMP 36.2; O2SAT 96; BMI 36.9
== END 2025-08-08 13:27 | disposition home or self-care (01) ==
LOC: HO.HMCFM 12:56
PROVIDERS: PCP Nurse Practitioner Family; Visit Provider Nurse Practitioner Family
DX: F41.9 Anxiety disorder, unspecified (principal); E66.9 Obesity, unspecified; Z68.36 Body mass index [BMI] 36.0-36.9, adult; F32.A Depression, unspecified; G47.9 Sleep disorder, unspecified

== ENCOUNTER → 2025-08-08 12:56 | Outpatient (BNVA) | payer OTHER, SELFPAY | PROVIDERS: PCP Nurse Practitioner Family; Visit Provider Nurse Practitioner Family | DX: Z00.00 Encounter for general adult medical examination without abnormal findings (principal); F41.9 Anxiety disorder, unspecified; F32.A Depression, unspecified; E66.9 Obesity, unspecified | CPT/HCPCS: 96127 ==

== ENCOUNTER 2025-08-29 14:13 | Outpatient (REF) | payer OTHER, SELFPAY ==
[2025-08-29 16:06] LABS: MANUAL DIFF FLAG NO
[2025-08-29 16:08] LABS: Hematocrit 42.5 % (37.0-47.0); Hemoglobin 14.2 g/dl (12.0-16.0); Imm Gran Abs Auto 0.03 X10*3/uL (0.00-0.03); Imm Gran Pct Auto 0.3 % (0.0-0.4); Lymphocytes Absolute Auto 2.7 X10*3/uL (1.2-4.9); Mean Corpuscular HGB Conc 33.4 g/dl (31.0-35.0); Mean Corpuscular Hemoglobin 28.2 pg (27.0-33.0); Mean Corpuscular Volume 84.5 fL (80.0-98.0); NRBC Abs Auto 0.000 X10*3/uL (0.0-0.012); NRBC Pct Auto 0.0 /100WBC (0.0-0.2); Platelet Count 361 X10*3/uL (160-400); Red Blood Count 5.03 X10*6/uL (4.20-5.50); White Blood Count 9.5 X10*3/uL (4.8-10.8)
[2025-08-29 16:49] LABS: Appearance Urine Turbid; Glucose Urine UA Negative (Negative); PH 6.0 (5.0-9.0); Specific Gravity - Urine >= 1.030 (1.005-1.025); UMIC TRIGGER UACC YES
[2025-08-29 17:06] LABS: Microalbum/Creatinine Ratio Ur 17.0 ug/mg cr (<30)
[2025-08-29 17:34] LABS: Alanine Aminotransferase 15 U/L (0-31); Albumin Level 4.6 g/dL (3.5-5.0); Alkaline Phosphatase 76 U/L (39-117); Anion Gap 13 (12-20); Aspartate Amino Transferase 22 U/L (5-31); Blood Urea Nitrogen 10 mg/dL (9-16); Calcium 9.4 mg/dL (8.4-10.2); Carbon Dioxide 23 mmol/L (22-29); Chloride 106 mmol/L (96-108); Estimated Glomerular Filt Rate > 60; Potassium 4.2 mmol/L (3.3-5.1); Sodium 138 mmol/L (135-145); Total Protein 8.1 g/dL (6.5-8.0)
--- OUTSIDE RECORDS SUMMARY | 2025-08-29 19:09 | XMS_ITS | Clinical Summary ---
Author Organization [facility] Address [address] [address] Phone Care Team Providers Care Scientific Publications Editor Name Role Phone HeardLinda velásquez ALLIE Primary [...] Completed 03/06, 05/20/2020 HEPATITIS C SCREENING Completed 05/19/2023 , 07/16/2022, 05/08/2021 HIB VACCINES Aged Out No longer eligi ble based on patient's age to complete this topic Medical Devices Not on file Procedures Procedure Name Priority Date/Time Associated Diagnosis Comments HEPATITIS B SURFACE ANTIGEN Routine 05/19/2023 9:27 AM EDT Screening for human immunodeficiency virus from Last 3 Months or Most Recently Relevant to Health Maintenance Results * Hepatitis B surface antigen (05/19/2023 9:27 AM EDT) HBV SURFACE ANTIGEN NON-REACTI VE NON-REACTI VE [facility] Blood 05/19/2023 9:27 AM EDT 05/19/2023 9:31 AM EDT us Jose L RUBY LAB BLOOD BKR ORDERABLES Fi nal Result [facility] [address] [place] [address] from Last 3 Months or Most Recently Relevant to Health Maintenance Insurance O O O O O O HMO O O Member Subscriber Plan / Payer (Ef fective 2022-Present) Name:Farnaz Benitez Relation to Subscriber:Self Name:Farnaz Benitez Payer ID:Not on file Type:HMO Address: [place] [id number] Care Teams Scientific Publications Editor Relationship Specialty Start Date End Date Linda Heard NP PCP - General Nurse Practitioner 05/17/23 Additional Source Comments The information contained in this document represents components of the legal health record. It is not the complete legal health record.[facility]
--- OUTSIDE RECORDS SUMMARY | 2025-08-29 19:09 | XMS_ITS | Encounter Summary ---
Author Organization [facility] Address [address] [place] [address] Care Team Providers Care Hot Saw Helper Name Role Phone Kenya Metz MD Primary Care Provider [phone] Kenya Metz MD Unavailable [phone] Linda Heard NP Primary Care Provider [phone] Lary Shepard APRN Unavailable Encounter Details Date Type Department Care Team (Late st Contact Info) Description 06/05/2021 Scanned Document [facility] [address] [place] [id number] Provider, Meka, [address] [place] [address] Social History Tobacco Use Types Packs/Day Years [...] on filedocumented in this encounter Care Teams Hot Saw Helper Relationship Specialty Start Date End Date Kenya Metz MD [address] [facility] [address] [place] [address] PCP - General Internal Medicine 05/08/21 08/13/23 Kenya Metz MD [address] [facility] [address] [place] [address] PCP - [place] [employer] Attributed 07/06/22 07/05/23 Linda Heard NP [address] [place] [address] PCP - General Family Medicine 08/14/23 Lary Shepard APRN [address] [place] [address] PCP - [place] [employer] Attributed 07/06/23 10/05/23 documented as of this encounter
[2025-08-29 23:43] LABS: CT PCR Urine NOT DETECTED (Not Detect.); NG PCR Urine NOT DETECTED (Not Detect.)
[2025-08-30 04:36] LABS: Syphilis Screen Nonreactive (Nonreactive)
[2025-08-30 05:28] LABS: HBS Num1 9.22 mIU/mL (0-7.99); HBc Num1 0.10 S/CO (0.00-0.79); HBsAGNum1 0.42 S/CO (0.00-0.99); HIV Num 1 0.07 S/CO (0.00-0.99); Hepatitis B Surface Antigen Negative (Negative); ~HepC Num1 0.12 S/CO (0.00-0.79); ~Hepatitis C Antibody Nonreactive (Nonreactive)
[2025-08-30 06:25] LABS: HBS Num2 8.84 mIU/mL (0-7.99); HBS Num3 8.14 mIU/mL (0-7.99); ~Hepatitis B Surface Antibody GRAYZONE (Nonreactive)
== END 2025-08-29 14:14 | disposition home or self-care (01) ==
LOC: HO.HMGCLDS 14:13
PROVIDERS: PCP Nurse Practitioner Family; Visit Provider Nurse Practitioner Family
DX: Z00.00 Encounter for general adult medical examination without abnormal findings (principal); Z20.2 Contact with and (suspected) exposure to infections with a predominantly sexual mode of transmission; Z11.4 Encounter for screening for human immunodeficiency virus [HIV]; Z13.29 Encounter for screening for other suspected endocrine disorder; Z13.21 Encounter for screening for nutritional disorder
CPT/HCPCS: 80053; 81001; 82043; 82306; 82570; 84443; 85025; 86704; 86706; 86780; 86803; 87340; 87389; 87491; 87591

== ENCOUNTER 2025-09-13 11:06 | Outpatient (REF) | payer OTHER, SELFPAY | END 2025-09-13 11:07 | disposition home or self-care (01) | LOC: HO.LAB 11:06 | PROVIDERS: PCP Nurse Practitioner Family; Visit Provider Nurse Practitioner Family | DX: Z00.00 Encounter for general adult medical examination without abnormal findings (principal); Z12.4 Encounter for screening for malignant neoplasm of cervix; E55.9 Vitamin D deficiency, unspecified; R39.9 Unspecified symptoms and signs involving the genitourinary system; G47.9 Sleep disorder, unspecified | CPT/HCPCS: 96127 ==

== ENCOUNTER 2025-09-13 11:06 | Outpatient (AMB) | payer OTHER, SELFPAY ==
--- NOTE | 2025-09-13 11:30 | A.OFFPC_ITS ---
Vital Signs 09/13/25 11:36 Height 5 ft 7 in Weight 230 lb 8 oz BMI 36.1 BP 121/61 Blood Pressure Location Rt brachial Position Sitting Respiration 16 Pulse 89 Pulse Source Pulse Oximeter Temp 98.1 F Temp Source Oral Pulse Oximetry (%) 100 Oxygen Delivery Method Room Air Intake Visit Reasons: 2-4 wks CPE, labs review Intake Note: patient here for CPE and labs review Compensation Manager Required: No Is last menstrual period known: Yes Last menstrual period: 08/23/25 Post menopausal: No Patient : No Allergies No Known Allergies Allergy (Verified 09/13/25 11:54) Medication List - Last Reconciled 09/13/25 by Pop Faria CNP bupropion HCl XL 300 mg PO QAM 30 days cholecalciferol (vitamin D3) 50 mcg PO DAILY 90 days semaglutide (weight loss) 0.5 mg (0.5 mL) subcut QWEEK trazodone 50 mg PO BEDTIME PRN Tobacco use date assessed: 09/13/25 Dental Screening Dental Screen Date: 09/13/25 Did you have a dental visit in the last 12 months?: Yes Did you have a dental problem in the last 6 months where you did not have access to dental care?: No Was dental information given to patient?: Patient has dentist HPI HPI Comments History of Present Illness Details 25-year-old female presents for an exten ded physical exam and review of recent lab results. She admits to taking her medications as prescribed without adverse reactions. She notes that her mood is generally well controlled. Acute issue(s) - Reports dysuria and vaginal itching fo r the past 1 week. She notes associated milky white discharge with fishy odor. Denies hematuria, urinary frequency or hesitancy. She notes that she was sexually active until earlier this month when she found out her partner was having unprotected sexual intercourse with other women. She is willing to get another screening for STD. Past Medical History - Dyslipidemia, myopia, insomnia, obesi ty, anxiety, depression. Social History - Former smoker, smoked 1 cigarette tl y x 2 years, quit in 2021. History of vaping, quit in 2022. Drinks 2-3 beers twice monthly. Denies recreational drug u se - Has been making healthy dietary choice s. Exercises routinely. Reports difficulty falling or staying asleep. Falls asleep after taking trazodone but unable to maintain sleep, unsure whether she snores a she lives alone Health maintenance - Last eye exam was a few months ago [facility] - Last dental visit was a few months ago - Last Tdap vaccine was in 09/06/2024 - Vaccinated for the flu last month - Last pap smear test was in 2021: Unkno wn result. Referred to [facility] [place] specialist for a pap smear test Specialists - None [facility] Medical History Insomnia No pertinent family history High cholesterol Depression Anxiety Surgical History No pertinent past surgical history Social History (Updated 09/13/25 @ 11:35 by ISABELA Tristan) Housing: Apartment Patient Tobacco Use Status: Never used Tobacco e-Cigarette/Vaping Use: Former Use Second Hand Smoke Exposure: No Use of substances other than those prescribed or required for medical reasons: No Patient : No service: No Current occupational status: employed 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 1. Little interest or pleasure in doing things: several days 2. Feeling down, depressed, or hopeless: several days 3. Trouble falling or staying asleep, or sleeping too much: nearly every day 4. Feeling tired or having little energy: several days 5. Poor appetite or overeating: not at all 6. Feeling bad about yourself - or that you are a failure or have let yourself or your family down: not at all 7. Trouble concentrating on things, such as reading the newspaper or watching television: not at all 8. Moving or speaking so slowly that other people could have noticed. Or the opposite - being so fidgety or restless that you have been moving around a lot more than usual: not at all 9. Thoughts that you would be better off or of hurting yourself in some way: not at all Total score: 6 Depression Screening Interpretation: Positive Depression Screening Follow-up: Existing condition and In treatment Depression Screening Done: Yes 97486 - PHQ-9 Billing: Yes Source: Developed by Drs. Clay Avilez, Edilma Dunbar, Jose Carlos Diop and colleagues, with an educational kimberly from [employer]. Thrive Questionnaire Date Thrive assessed: 09/13/25 I am a: Patient What is your living situation today?: I have a steady place to live Within the past 12 months, did the food you bought not last and you didn't have the money to get more?: Often true Within the past 12 months, did you worry whether your food would run out before you got money to buy more?: Often true Do you have trouble paying for medicines?: No Do you have trouble getting transportation to medical appointments?: No Do you have trouble paying your heating and electricity bill?: No Do you have trouble taking care of your child, family member or friend?: No Do you have trouble with day-to-day activities such as bathing, preparing meals, shopping, managing finances, etc.?: No Are you currently unemployed and looking for a job?: No Are you interested in more education?: Yes Please select the resources that you would like help with: Education Currently or been in a relationship where the following occur: No concerns reported THRIVE Score: 2 AUDIT C Alcohol Use Questionnaire (AUDIT-C) 1. How often do you have a drink containing alcohol?: Monthly or less 2. How many drinks containing alcohol do you have on a typical day when you are drinking?: 1 or 2 3. How often do you have six or more drinks on one occasion?: Never Total Score: 1 Score Reviewed/Action Taken: Yes LAURA-7 AMB Questionnaire LAURA-7 Date LAURA - 7 assessed: 09/13/25 Feeling nervous, anxious, or on edge: 0 = Not at all Not being able to stop or control worryin = Several days Worrying too much about different things: 1 = Several days Trouble relaxin = Several days Being so restless that it is hard to sit still: 1 = Several days Becoming easily annoyed or irritable: 1 = Several days Feeling afraid as if something awful might happen: 1 = Several days Total LAURA-7 score (0-4 normal; 5-9 mild; 10-14 moderate; 15-21 severe): 6 Source: Developed by Drs. Clay Avilez, Edilma Dunbar, Jose Carlos Diop and colleagues, with an educational kimberly from [employer]. LAURA-7 Assessment Billing LAURA-7 Assessment Tool: LAURA-7 Assessment 36294 Review of Systems Const Details: Denies chills, Denies fatigue, Denies fever(s), Denies headache(s) and Denies weakness HEENT Denies change in vision, Denies dizziness, Denies headache(s), Denies hearing loss, Denies nasal congestion, Denies sinus pain, Denies sinus pressure and Denies sore throat Card Denies chest pain, Denies lightheadedness, Denies dyspnea and Denies other (palpitations) Resp Denies cough, Denies dyspnea and Denies wheezing GI Denies abdominal pain, Denies melena, Denies hematochezia, Denies change in bowel habits, Denies dyspepsia and Denies nausea Reports as per HPI Musc Denies abnormal gait, Denies myalgias, Denies arthralgias, Denies numbness and Denies tingling Skin/Breast Denies rash, Denies unusual bruising and Denies wounds Neuro Denies abnormal gait, Denies dizziness, Denies headache(s), Denies memory loss, Denies numbness, Denies Sensory deficit (Neuro), Denies tingling and Denies weakness Psych Denies anxiety, Denies depression and Denies memory loss Endo Denies cold intolerance, Denies fatigue, Denies heat intolerance, Denies polydipsia and Denies polyuria Vivek/Lymph Denies easy bleeding and Denies easy bruising Aller/Immun Denies wheezing Physical exam (Primary Care) Vital Signs: Last Vital Signs Temp 98.1 F 09/13/25 11:36 Pulse 89 09/13/25 11:36 Resp 16 09/13/25 11:36 BP 121/61 09/13/25 11:36 Pulse Ox 100 09/13/25 11:36 Oxygen Delivery Method Room Air 09/13/25 11:36 BMI result Body Mass Index 36.1 Tobacco/Smoking Status: Tobacco use Status Tobacco use date assessed 09/13/25 09/13/25 11:36 Patient Tobacco Use Status Never used Tobacco 09/13/25 11:35 e-Cigarette/Vaping Use Former Use 12/09/25 11:35 PHQ-9: PHQ-9 Score PHQ-9: Total score 6 09/13/25 11:41 Depression Screening Interpretation: Positive Depression Screening Follow-up: Existing condition and In treatment Thrive Assessment: Date of Thrive Assessment Date Thrive assessed 09/13/25 09/13/25 11:41 Currently or been in a relationship where the following occur: No concerns reported Const Other: General: no acute distress, well developed, alert and awake Nutritional Appearance: well nourished Orientation/consciousness: patient oriented x3 [facility] Head: Yes normocephalic and Yes atraumatic Ears: hearing grossly normal bilaterally and TM's normal bilaterally General nose exam: Normal external nose present and Normal nares present Mouth: Normal oral and palatal mucosa present and moist mucous membranes Teeth and gingiva: dentition normal Throat: Yes oropharynx normal Eyes Pupils: Equal, round and reactive pupils present and Pupil accommodation reflex normal EOM: EOMs intact bilaterally Neck Neck: Yes normal visual inspection, Yes no lymphadenopathy and Yes trachea midline Thyroid: Thyroid normal Carotids: no bruits Lymphatic: no lymphadenopathy noted Chest Chest palpation & inspection: normal inspection of the chest Resp Effort & Inspection: normal respiratory effort Auscultation: clear to auscultation bilaterally Cardio Rate: regular rate Rhythm: regular rhythm Heart sounds: S1 normal heart sound present, S2 normal heart sound present, no gallops, no murmurs and no rubs Bruits: no abdominal aortic bruits and no carotid bruits GI Palpation (GI): No Abdominal aortic bruit present, Soft to palpation, nontender, No hepatosplenomegaly present and No Rebound tenderness present Auscultation: normal bowel sounds General: Yes no CVA tenderness Back/Spine/Pelvis Back: no CVA tenderness Cervical Spine: cervical ROM normal and No Cervical spine tenderness Thoracic/Lumbar Spine: thoraco-lumbar ROM normal, No pain with thoraco-lumbar ROM, No thoracic spinal tenderness and No lumbar spinal tenderness Skin General: warm and dry. Normal skin color. Normal skin turgor Lesions: no lesions Rashes: no rashes Trauma: no lacerations or abrasions Wounds: no wounds Nails: normal Neuro General: patient oriented x3, gait normal and CN's II-XI intact bilaterally Cranial nerves: Yes Equal, round and reactive pupils present Cognition (Neuro): normal cognition Gait exam (Neuro): Normal gait present Motor exam (neuro): 02/07 motor strength present throughout Sensory Exam: No Sensory deficit (Neuro) Deep tendon reflexes (DTR's): Right patellar reflex intensity grade: 2+ and Left patellar reflex intensity grade: 2+ Extrem General: Yes normal to inspection, No edema and No calf tenderness Psych Appearance: grossly normal Affect: normal affect Attitude: cooperative Thought process: Normal thought process present Coding Level of Care Code Est Pt Level 4 (10470) Est Pt Prev Care 18-39y(98731) Diagnoses Normal physical examination, routine Z00.00 Vitamin D deficiency E55.9 Lower urinary tract symptoms (LUTS) R39.9 Sleep disturbance G47.9 Papanicolaou smear for cervical cancer screening Z12.4 Additional Codes LAURA-7 Assessment Billing - LAURA-7 Assessment Tool: LAURA-7 Assessment 61363 ([id number]) PHQ-9 - 57864 - PHQ-9 Billing: Yes ([id number]) Assessment & Plan Assessment & Plan (1) Normal physical examination, routine: Code(s): Z00.00 - Encounter for general adult medical examination without abnormal findings Category: Medical Plan: No significant functional limitations noted. Continue current treatment regimen. Healthy diet and routine exercise encouraged. Perform fasting blood work a few days before next visit. Follow-up with new PCP as planned next month. Return sooner with symptoms or concerns. Verbalized understanding and agreed with the plan. (2) Vitamin D deficiency: Code(s): E55.9 - Vitamin D deficiency, unspecified Category: Medical Plan: Recent vitamin-D level is slightly low, 29.3. Continue current treatment regimen. Will recheck vitamin-D level next month. Verbalized understanding and agreed with the plan. (3) Lower urinary tract symptoms (LUTS): Code(s): R39.9 - Unspecified symptoms and signs involving the genitourinary system Category: Medical Plan: Reports dysuria and vaginal itching for the past 1 week. She notes associated milky white discharge with fishy odor. Denies hematuria, urinary frequency or hesitancy. She notes that she was sexually active until earlier this month when she found out her partner was having unprotected sexual intercourse with other women. She is willing to get another screening for STD. Likely bacterial vaginosis. May also be vaginal candidiasis or UTI. Metronidazole 500 mg twice daily x7 days ordered; advised to take as prescribed. Encouraged to avoid scented vaginal products and use plain water. Advised to avoid unprotected sexual intercourse. Labs ordered for STD screening. Follow-up with worsening or new symptoms. Verbalized understanding and agreed with the plan. (4) Sleep disturbance: Code(s): G47.9 - Sleep disorder, unspecified Category: Medical Plan: Reports difficulty falling or staying asleep. Falls asleep after taking trazodone but unable to maintain sleep. She is unsure whether she snores a she lives alone. Trazodone increased to 100 mg at bedtime as needed for sleep. Instructed on sleep hygiene. Referred to sleep medicine for a sleep study. Follow-up as needed. Verbalized understanding and agreed with the plan. (5) Papanicolaou smear for cervical cancer screening: Code(s): Z12.4 - Encounter for screening for malignant neoplasm of cervix Category: Medical Plan: Last pap smear test was in 2021: Unknown result. Referred to [facility] insurance account specialist for a pap smear test. Orders: Orders Lipid Panel 1 Month E78.5 - Hyperlipidemia, unspecified Vitamin D 25-OH Total 1 Month E55.9 - Vitamin D deficiency, unspecified UA CC w/rflx Micro + Cult Today R39.9 - Unspecified symptoms and signs involving the genitourinary system CT NG by PCR Urine Today Z11.3 - Encounter for screening for infections with a predominantly sexual mode of transmission Hepatitis B,C Profile Today R39.9 - Unspecified symptoms and signs involving the genitourinary system HIV Ab/Ag Today R39.9 - Unspecified symptoms and signs involving the genitourinary system Syphilis Screen Today R39.9 - Unspecified symptoms and signs involving the genitourinary system Bacterial Vaginosis Panel Today R39.9 - Unspecified symptoms and signs involving the genitourinary system Referrals Sleep Medicine Referral G47.9 - Sleep disorder, unspecified FITNESS DIRECTOR Referral Z12.4 - Encounter for screening for malignant neoplasm of cervix Medications: New trazodone 100 mg PO BEDTIME PRN 90 tabs 3RF sleep metronidazole 500 mg PO BID 14 tabs 0RF 7 days Discontinued trazodone Discontinued Reason: Doctor's Order 50 mg PO BEDTIME PRN 90 tabs 1RF sleep
[2025-09-13 11:36] VITALS: BP 121/61; PULSE 89; RESP 16; TEMP 36.7; O2SAT 100; BMI 36.1
== END 2025-09-13 12:28 | disposition home or self-care (01) ==
LOC: HO.HMCFM 11:07
PROVIDERS: PCP Nurse Practitioner Family; Visit Provider Nurse Practitioner Family
DX: Z00.00 Encounter for general adult medical examination without abnormal findings (principal); E55.9 Vitamin D deficiency, unspecified; L29.2 Pruritus vulvae; G47.00 Insomnia, unspecified

== ENCOUNTER 2025-09-13 13:11 | Outpatient (REF) | payer OTHER, SELFPAY ==
[2025-09-13 16:12] LABS: Bacterial Vaginosis PCR POSITIVE (Negative); Candida Group PCR DETECTED (Not Detect); Candida glab krusei PCR NOT DETECTED (Not Detect); Trichomonas vaginalis PCR NOT DETECTED (Not Detect)
[2025-09-13 16:49] LABS: CT PCR Urine NOT DETECTED (Not Detect.); NG PCR Urine NOT DETECTED (Not Detect.)
--- OUTSIDE RECORDS SUMMARY | 2025-09-13 17:31 | XMS_ITS | Clinical Summary ---
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 For additional information please refer to http://education.StoryBlender.Clever Sense/faq/RYJ143 (This link is being provided for informational/ educational purposes only.) The performance of this assay has not been clinically validated in patients less than 2 years old. Blood specimen (specimen) Blood specimen / Unknown 05/08/2021 12:38 PM EDT 05/08/2021 12:40 PM EDT Narrative [facility] - 05/09/2021 4:11 AM EDT FASTING:YES FASTING: YES us Kenya Metz MD LAB BLOOD ORDERABLES Final Result [facility] [address] [place] [address], [place] [address] * Hepatitis C Virus (HCV) Antibody (05/08/2021 12:38 PM EDT) Hepatitis C Antibody NON-REACT LANDON NON-REACT LANDON Booster Pack Hepatitis C Antibody (s/co) 0.01 <1.00 Booster Pack Comment: HCV antibody was non-reactive. There is no laboratory evidence of HCV infection. In most cases, no further action is required. However, if recent HCV exposure is suspected, a test for HCV RNA (test code 22810) is suggested. For additional information please refer to http://education.CELLFOR/faq/WEF42k9 (This link is being provided for informational/ educational purposes only.) Blood specimen (specimen) Blood specimen / Unknown 05/08/2021 12:38 PM EDT 05/08/2021 12:40 PM EDT Narrative [facility] - 05/09/2021 4:11 AM EDT FASTING:YES FASTING: YES us Kenya Metz MD LAB BLOOD ORDERABLES Final Result [facility] [address] [place] [address], [place] [address] * ThinPrep Pap Test (Mounted Police Officer) with HPV Screen (05/08/2021 12:00 AM EDT) Clinical Information None given [facility] LMP: 04/12/21 Booster Pack Previous PAP: NONE GIVEN Booster Pack Previous Biopsy NONE GIVEN Collarity Source: Endocervix Booster Pack Statement of Adequacy: Booster Pack Comment: Satisfactory for evaluation. Endocervical/transformation zone component present. Interpretation/Re sult: Negative for intraepithelial lesion or malignancy. Booster Pack Comment: This Pap test has been evaluated with computer assisted technology. [facility]oster Pack Space Physicist: [employer] Comment: ADELA KUMAR(ASCP) CT screening location: [address] [address] Comment Booster Pack Comment: EXPLANATORY NOTE: The Pap is a [...] Hpv Mrna E6E7 Not Detected Not Detected N-Sided-N-Sided Comment: Methodology: Anchorer-Mediated Amplification This assay detects E6/E7 viral messenger RNA (mRNA) from 14 high-risk HPV types (16,18,31,33,35,39,45,51,52,56,58,59,66,68). The analytical performance characteristics of this assay have been determined by [employer]. The modifications have not been cleared or approved by the FDA. This assay has been validated pursuant to the CLIA regulations and is used for clinical purposes. For additional information, please refer to http://education.CELLFOR/faq/UCH071v9 (This link if provided for information/ educational purposes only.) 05/08/2021 05/09/2021 11: 31 AM EDT Narrative [facility] - 05/10/2021 2:43 AM EDT FASTING: UNKNOWN us Kenya Metz MD LAB AMB PATH/CYTO ORDERABLE S Final Result [employer] [address] [place] [address], [place] [address] from Last 3 Months or Most Recently Relevant to Health Maintenance Insurance [facility] HMO [facility] Care Teams Diet Therapist Relationship Specialty Start Date End Date Linda Heard NP [address] [place] [address] PCP - General Family Medicine 08/14/23
--- OUTSIDE RECORDS SUMMARY | 2025-09-13 17:31 | XMS_ITS | Encounter Summary ---
Author Organization [facility] Address [address] [place] [address] Care Team Providers Care House Worker Name Role Phone Kenya Metz MD Primary Care Provider [phone] Kenya Metz MD Unavailable Linda Heard NP Primary Care Provider [phone] Lary Shepard APRN Unavailable [phone] Encounter Details Date Type Department Care Team (Late st Contact Info) Description 06/05/2021 Scanned Document [facility] [address] [place] [id number] Provider, External, [address] [place] [id number] Social History Tobacco Use Types Packs/Day Years [...] on filedocumented in this encounter Care Teams House Worker Relationship Specialty Start Date End Date Kenya Metz MD [address] [facility] [address] [place] [address] PCP - General Internal Medicine 05/08/21 08/13/23 Kenya Metz MD [address] [facility] [address] [place] [address] PCP - [employer] Attributed 07/06/22 07/05/23 Linda Heard NP [address] [place] [address] PCP - General Family Medicine 08/14/23 Lary Shepard APRN [address] [place] [address] PCP - [employer] Attributed 07/06/23 10/05/23 documented as of this encounter
--- OUTSIDE RECORDS SUMMARY | 2025-09-13 17:31 | XMS_ITS | Clinical Summary ---
Author Organization [facility] Address [address] [address] Phone Care Team Providers Care Trade Recruiter Name Role Phone HeardLinda velásquez ALLIE Primary [...] HBV SURFACE ANTIGEN NON-REACTI VE NON-REACTI VE [facility] Blood 05/19/2023 9:27 AM EDT 05/19/2023 9:31 AM EDT us Jose L RUBY LAB BLOOD BKR ORDERABLES Fi nal Result [facility] [address] [place] [address] from Last 3 Months or Most Recently Relevant to Health Maintenance Insurance O O O O O O HMO O O Member Subscriber Plan / Payer (Ef fective 2022-Present) Name:Farnaz Benitez Relation to Subscriber:Self Name:Farnaz Benitez Payer ID:Not on file Type:HMO Address: [place] [id number] Care Teams Trade Recruiter Relationship Specialty Start Date End Date Linda Heard NP PCP - General Nurse Practitioner 05/17/23 Additional Source Comments The information contained in this document represents components of the legal health record. It is not the complete legal health record[facility]
[2025-09-13 18:40] LABS: Cholesterol 192 mg/dL (<200); HDL Cholesterol 44 mg/dL (>40); Triglycerides 79 mg/dL (<150)
[2025-09-14 06:00] LABS: Syphilis Screen Nonreactive (Nonreactive)
[2025-09-14 06:04] LABS: HBS Num1 6.58 mIU/mL (0-7.99); HBc Num1 0.11 S/CO (0.00-0.79); HBsAGNum1 0.59 S/CO (0.00-0.99); HIV Num 1 0.06 S/CO (0.00-0.99); Hepatitis B Surface Antigen Negative (Negative); ~HepC Num1 0.12 S/CO (0.00-0.79); ~Hepatitis B Surface Antibody NONREACTIVE (Nonreactive); ~Hepatitis C Antibody Nonreactive (Nonreactive)
== END 2025-09-13 13:12 | disposition home or self-care (01) ==
LOC: HO.WFDLDS 13:11
PROVIDERS: Visit Provider Nurse Practitioner Family
DX: Z20.2 Contact with and (suspected) exposure to infections with a predominantly sexual mode of transmission (principal); R39.9 Unspecified symptoms and signs involving the genitourinary system; E78.5 Hyperlipidemia, unspecified; E55.9 Vitamin D deficiency, unspecified
CPT/HCPCS: 80061; 81515; 82306; 86704; 86706; 86780; 86803; 87340; 87389; 87491; 87591

== ENCOUNTER 2025-09-21 10:40 | Outpatient (AMB) | payer OTHER, SELFPAY ==
[2025-09-21 10:47] VITALS: BP 110/70; PULSE 99; TEMP 37; O2SAT 98; BMI 35.7
--- NOTE | 2025-09-21 10:47 | MHC.OFFWIV ---
Intake Vital Signs 09/21/25 10:47 Height 5 ft 7 in Weight 228 lb BMI 35.7 BP 110/70 Blood Pressure Location Rt brachial Position Sitting Pulse 99 Pulse Source Pulse Oximeter Temp 98.6 F Temp Source Oral Pulse Oximetry (%) 98 Oxygen Delivery Method Room Air Intake Visit Reasons: EP Sore throat, mucus, body weakness Intake Note: pt presents with sore throat, body weakness, headache, sinus congestion, chest congestion with productive coughing beginning yesterday and worsened today Patient Tobacco Use Status: Never used Tobacco Allergies No Known Allergies Allergy (Verified 09/21/25 10:50) Do you need a note to return to daycare/school/sports/work: Yes HPI HPI Comments History of Present Illness Details History - The patient is a 25 year old female presenting with symptoms that began yesterday and worsened this morning. - She reports sore throat, difficulty swallowing, cough productive of mucus, and generalized body weakness. - The symptoms were severe enough that she experienced shortness of breath while walking at work and had to leave. - She has associated ear pain when she coughs or sneezes. - She reports having a high temperature yesterday, which has since resolved. - She has taken Mucinex for her symptoms and denies any history of asthma. - The patient also mentions a history of sharp, painful sensations in her side that can affect her breathing. - She notes that many people are sick at her workplace. - She denies smoking. - She denies chest pain, SOB, abd pain, or n/v/d. Physical Exam General: Cooperative, healthy appearing, comfortable and no acute distress Orientation/consciousness: Patient oriented x3 Limitations: No limitations Head: Normal to inspection Ears: Hearing grossly normal bilaterally, external ears normal and TM's normal bilaterally. Nose: Normal external nose present, normal nares present, and no nasal discharge present. Face and sinus: Sinuses nontender to palpation. Mouth: Normal oral and palatal mucosa present and moist mucous membranes noted. Throat: Tonsils normal. Uvula is midline. Posterior oropharynx with erythema and no exudates. Eyes: Appearance normal, both eyes and all related structures Neck: Normal visual inspection, full ROM. No lymphadenopathy noted. Respiratory: Clear to auscultation bilaterally. Normal respiratory effort, able to speak in complete sentences. Cardiovascular: Regular rate and rhythm. 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 Current occupational exposures/hazards: No Cognitive needs: No Hearing needs: No Vision needs: Yes Review of Systems Const All systems reviewed & are unremarkable except as noted in HPI and below Physical Exam Vital Signs: Last Vital Signs Temp 98.6 F 09/21/25 10:47 Pulse 99 09/21/25 10:47 BP 110/70 09/21/25 10:47 Pulse Ox 98 09/21/25 10:47 Oxygen Delivery Method Room Air 09/21/25 10:47 BMI result Body Mass Index 35.7 Results AMB Rapid Strep AMB Rapid Strep Negative Last Edit by Elana Bah CMA on 09/21/25 11:04 Results Reviewed Results Reviewed: Laboratory Last Values Strep Scn Rapid Clinic Negative 09/21/25 10:55 Assessment & Plan Assessment & Plan (1) Sore throat: Code(s): J02.9 - Acute pharyngitis, unspecified (2) Cough: Code(s): R05.9 - Cough, unspecified Qualifiers: Cough type: acute Qualified Code(s): R05.1 - Acute cough Plan Most likely Acute Upper Respiratory Infection vs covid vs flu vs RSV vs viral illness vs strep rapid strep was neg plan - The clinical presentation suggests a viral etiology, supported by a negative rapid strep test. - Centor's criteria was 0 - A combined COVID-19, influenza, and RSV swab was collected for testing, with results pending. - A prescription was provided for cough medicine pills, which also serve to numb the throat. - A work note was issued, excusing the patient until Friday. - Will call the patient with test results when available. Orders: Orders SARS-CoV2/FLU/RSV Today R09.89 - Other specified symptoms and signs involving the circulatory and respiratory systems AMB Rapid Strep Screen Today Z13.9 - Encounter for screening, unspecified Medications: New benzonatate 100 mg PO bid-tid PRN 21 caps 0RF Cough 7 days Coding Level of Care Code Est Pt Level 3 (87819) Diagnoses Sore throat J02.9 Acute cough R05.1 Cough type: acute
--- OUTSIDE RECORDS SUMMARY | 2025-09-21 13:35 | XMS_ITS | Encounter Summary ---
Author Organization [facility] Address [address] [place] [address] Care Team Providers Care Head Porter Name Role Phone Kenya Metz MD Primary Care Provider [phone] Kenya Metz MD Unavailable Linda Heard NP Primary Care Provider [phone] Lary Shepard APRN Unavailable Encounter Details Date Type Department Care Team (Late st Contact Info) Description 06/05/2021 Scanned Document [facility] [address] [place] [id number] Provider, External, [address] [place] [id number] Social History Tobacco Use Types Packs/Day Years [...] on filedocumented in this encounter Care Teams Head Porter Relationship Specialty Start Date End Date Kenya Metz MD [address] [facility] [address] [place] [address] PCP - General Internal Medicine 05/08/21 08/13/23 Kenya Metz MD [address] [facility] [address] [place] [address] PCP - [employer] Attributed 07/06/22 07/05/23 Linda Heard NP [address] [place] [address] PCP - General Family Medicine 08/14/23 Lary Shepard APRN [address] [place] [address] PCP - [employer] Attributed 07/06/23 10/05/23 documented as of this encounter
--- OUTSIDE RECORDS SUMMARY | 2025-09-21 13:35 | XMS_ITS | Clinical Summary ---
Author Organization [facility] Address [address] [address] Phone Care Team Providers Care Deputy Brand Inspector Name Role Phone HeardLinda velásquez ALLIE [...] HBV SURFACE ANTIGEN NON-REACTI VE NON-REACTI VE [facility] Blood 05/19/2023 9:27 AM EDT 05/19/2023 9:31 AM EDT us Jose L RUBY LAB BLOOD BKR ORDERABLES Fi nal Result [facility] [address] [place] [address] from Last 3 Months or Most Recently Relevant to Health Maintenance Insurance O O O O O O HMO O O Member Subscriber Plan / Payer (Ef fective 2022-Present) Name:Farnaz Benitez Relation to Subscriber:Self Name:Farnaz Benitez Payer ID:Not on file Type:HMO Address: [place] [id number] Care Teams Deputy Brand Inspector Relationship Specialty Start Date End Date Linda Heard NP PCP - General Nurse Practitioner 05/17/23 Additional Source Comments The information contained in this document represents components of the legal health record. It is not the complete legal health record.[facility]
--- OUTSIDE RECORDS SUMMARY | 2025-09-21 13:35 | XMS_ITS | Clinical Summary ---
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 For additional information please refer to http://education.[employer]/faq/RWK734 (This link is being provided for informational/ educational purposes only.) The performance of this assay has not been clinically validated in patients less than 2 years old. Blood specimen (specimen) Blood specimen / Unknown 05/08/2021 12:38 PM EDT 05/08/2021 12:40 PM EDT Narrative [facility] - 05/09/2021 4:11 AM EDT FASTING:YES FASTING: YES us Kenya Metz MD LAB BLOOD ORDERABLES Final Result [facility] [address] [place] [address], [place] [address] * Hepatitis C Virus (HCV) Antibody (05/08/2021 12:38 PM EDT) Hepatitis C Antibody NON-REACT LANDON NON-REACT LANDON [email or web address] Hepatitis C Antibody (s/co) 0.01 <1.00 [email or web address] Comment: HCV antibody was non-reactive. There is no laboratory evidence of HCV infection. In most cases, no further action is required. However, if recent HCV exposure is suspected, a test for HCV RNA (test code 62360) is suggested. For additional information please refer to http://education.[employer]/faq/IGW52m8 (This link is being provided for informational/ educational purposes only.) Blood specimen (specimen) Blood specimen / Unknown 05/08/2021 12:38 PM EDT 05/08/2021 12:40 PM EDT Narrative [facility] - 05/09/2021 4:11 AM EDT FASTING:YES FASTING: YES us Kenay Metz MD LAB BLOOD ORDERABLES Final Result [facility] [address] [place] [address], [place] [address] * ThinPrep Pap Test (Team Member) with HPV Screen (05/08/2021 12:00 AM EDT) Clinical Information None given [email or web address] LMP: 04/12/21 [email or web address] Previous PAP: NONE GIVEN [email or web address] Previous Biopsy NONE GIVEN S[facility]lu Source: Endocervix [email or web address] Statement of Adequacy: [email or web address] Comment: Satisfactory for evaluation. Endocervical/transformation zone component present. Interpretation/Re sult: Negative for intraepithelial lesion or malignancy. [email or web address] Comment: This Pap test has been evaluated with computer assisted technology. [email or web address] Fiberglass Roller: [employer] [place] (RTP) Comment: ADELA KUMAR(ASCP) CT screening location: [address] [address] Comment [email or web address] Comment: EXPLANATORY NOTE: The Pap is a [...] Hpv Mrna E6E7 Not Detected Not Detected [facility] Comment: Methodology: Emergency Medical Dispatcher-Mediated Amplification This assay detects E6/E7 viral messenger RNA (mRNA) from 14 high-risk HPV types (16,18,31,33,35,39,45,51,52,56,58,59,66,68). The analytical performance characteristics of this assay have been determined by [employer]. The modifications have not been cleared or approved by the FDA. This assay has been validated pursuant to the CLIA regulations and is used for clinical purposes. For additional information, please refer to http://education.[employer]/faq/RFS461m2 (This link if provided for information/ educational purposes only.) 05/08/2021 05/09/2021 11: 31 AM EDT Narrative [facility] - 05/10/2021 2:43 AM EDT FASTING: UNKNOWN us Kenya Metz MD LAB AMB PATH/CYTO ORDERABLE S Final Result [facility] [address] [place] [address], [place] [address] from Last 3 Months or Most Recently Relevant to Health Maintenance Insurance [facility] HMO [facility] Care Teams Professional Sports Scout Relationship Specialty Start Date End Date Linda Heard NP [address] [place] [address] PCP - General Family Medicine 08/14/23
== END 2025-09-21 11:54 | disposition home or self-care (01) ==
PROVIDERS: PCP Nurse Practitioner Family; Visit Provider Physician Assistant Medical
DX: J02.9 Acute pharyngitis, unspecified (principal); R05.1 Acute cough; Z13.9 Encounter for screening, unspecified

== ENCOUNTER 2025-09-21 10:40 | Outpatient (REF) | payer OTHER, SELFPAY ==
[2025-09-21 15:18] LABS: Resp Syncy Virus RNA Qual PCR NEGATIVE (Negative); SARS COV2 PCR INHOUSE NEGATIVE (Negative)
== END 2025-09-21 10:41 | disposition home or self-care (01) ==
LOC: HO.LNP 10:40
PROVIDERS: Physician Assistant Medical; PCP Nurse Practitioner Family
DX: J02.9 Acute pharyngitis, unspecified (principal); R05.1 Acute cough; R09.89 Other specified symptoms and signs involving the circulatory and respiratory systems
CPT/HCPCS: 87637; 87880